=== PATIENT | female | born 1970 ===

== ENCOUNTER 2018-12-23 09:30 | Emergency (ER) | payer OTHER ==
[~2018-12-23] VITALS: Ht 167.6 cm; Wt 77.1 kg
[2018-12-23] MEDS ORDERED: LEVOTHYROXINE (09:41)
--- NOTE | 2018-12-23 09:41 | ED Fall/Injury ---
General Chief Complaint: Trauma-Non Activation Stated Complaint: FALL Source: patient Exam Limitations: language barrier (Bermudian is second language) History of Present Illness Date Seen by Provider: December 23, 2018 Time Seen by Provider: 09:33 Initial Comments The patient presents to ER by EMS from [employer] with chief complaint that she was walking down some stairs and thought she was on the bottom stair but she still had one ago so she fell striking the right back of her head. She does not member everything that happened after that and os consciousness for a few seconds. She does have a history of stroke with some residual right-sided weakness and when she was in her home [place] she said they did some surgery and left things in her head she's not sure what the name of the procedure was. She has a history of hypothyroidism but denies anything else. She is accompanied by some friends who help her with Bermudian translation. She's having some pain in her left hand second metacarpal mild swelling/contusion. No loss of sensation, weakness all 4 extremities Allergies and Home Medications Allergies Coded Allergies: No Known Drug Allergies (Unverified , 12/23/18) Patient Home Medication List Home Medication List Reviewed: Yes Review of Systems Review of Systems Constitutional: No chills, No diaphoresis Eyes: Denies Blindness, Denies Blurred Vision Ears, Nose, Mouth, Throat: denies ear pain, denies ear discharge Respiratory: No cough, No short of breath Cardiovascular: No chest pain, No edema Gastrointestinal: No abdominal pain, No constipation, No nausea Past Augujjx-Jvhlba-Punjdl Hx Patient Social History Alcohol Use: Denies Use Recreational Drug Use: No Smoking Status: Never a Smoker Recent Foreign Travel: No Contact w/Someone Who Travel: No Physical Exam Vital Signs Vital Signs - First Documented 12/23/18 09:41 Temp 97.7 Pulse 64 Resp 18 B/P (MAP) 126/81 (96) Pulse Ox 98 O2 Delivery Room Air Capillary Refill : Height, Weight, BMI Height: '" Weight: lbs. oz. kg; BMI Method: General Appearance: WD/WN, mild distress HEENT: PERRL/EOMI, TMs normal Neck: non-tender, full range of motion Cardiovascular: normal peripheral pulses, regular rate, rhythm Respiratory: chest non-tender, lungs clear, normal breath sounds, no respiratory distress, no accessory muscle use Peripheral Pulses: 2+ Radial Pulses (R), 2+ Radial Pulses (L) Gastrointestinal: normal bowel sounds, non tender, soft Extremities: normal capillary refill, swelling (soft tissue swelling between the first and second digit on the left hand. There is no tenderness over the anatomic snuffbox but there is tenderness in the first and second metacarpal) Neurologic/Psychiatric: alert, normal mood/affect, oriented x 3 Skin: normal color, warm/dry Carlos Coma Score Best Eye Response: (4) Open Spontaneously Best Verbal Response: (5) Oriented Best Motor Response: (6) Obeys Commands Carlos Total: 15 Progress/Results/Core Measures Results/Orders My Orders Orders - HARRIET SHANE Ct Head/Cervical Spine Wo (12/23/18 09:39) Hand, Left, 3 Views (12/23/18 09:39) Vital Signs/I&O 12/23/18 09:41 Temp 97.7 Pulse 64 Resp 18 B/P (MAP) 126/81 (96) Pulse Ox 98 O2 Delivery Room Air Diagnostic Imaging Diagonstic Imaging: CT (without contrast) Plain Films/CT/US/NM/MRI: c-spine, head Comments [facility], [place] NAME: ARACELI TROTTER [facility] REC#: [id number] PT STATUS: REG ER : 1970 PHYSICIAN: HARRIET SHANE MD ADMIT DATE: 12/23/18/ER Draft Date of Exam:12/23/18 CT HEAD/CERVICAL SPINE WO PROCEDURE: CT head and CT cervical spine without contrast. TECHNIQUE: Multiple contiguous axial images were obtained through the brain and cervical spine without the use of intravenous contrast. Sagittal and coronal reformations through the cervical spine were then performed. Auto Exposure Controls were utilized during the CT exam to meet ALARA standards for radiation dose reduction. INDICATION: Fall, hitting back of the head and complaint of head and neck pain. No prior studies are available for comparison. There is a small area of encephalomalacia in the high left posterior parietal lobe likely from prior infarct or trauma. Ventricular size is normal. The sulcal pattern is normal. There is no midline shift. No acute intra-axial or extra-axial hemorrhage is detected. Cisterns are patent. Visualized paranasal sinuses are clear. IMPRESSION: Chronic changes. No acute intracranial process is detected. CT cervical spine: Curvature and alignment is normal. There is degenerative disc disease C5-6 level with disc space and marginal spurring. No fractures are seen. The odontoid is intact. Prevertebral tissues are within normal limits. IMPRESSION: Cervical spondylosis. No acute bony abnormality is detected. Dictated on workstation # [id number] Dict: 12/23/18 1044 Trans: 12/23/18 1051 [facility] [id number] Interpreted by: MARLIN AVILA MD Electronically signed by: Reviewed: Reviewed by Me Diagonstic Imaging: Xray Plain Films/CT/US/NM/MRI: hand Comments [facility] [place] NAME: ARACELI TROTTER [facility] REC#: [id number] PT STATUS: REG ER : 1970 PHYSICIAN: HARRIET SHANE MD ADMIT DATE: 12/23/18/ER Draft Date of Exam:12/23/18 HAND, LEFT, 3 VIEWS INDICATION: Fall with injury to left hand and knot between the first and second digits. TIME OF EXAMINATION: 9:48 AM. TECHNIQUE: Three views of the left hand were obtained. FINDINGS: The metacarpals appear to be intact. The phalanges are intact. No fractures are seen. The carpus is unremarkable. IMPRESSION: No acute bony abnormality is detected. Dictated on workstation # [id number] Dict: 12/23/18 0954 Trans: 12/23/18 0958 [id number] Interpreted by: MARLIN AVILA MD Electronically signed by: Reviewed: Reviewed by Me Departure Impression Primary Impression: Fall (on) (from) other stairs and steps, initial encounter Additional Impressions: Headache Qualified Codes: R51 - Headache Contusion Qualified Codes: S00.03XA - Contusion of scalp, initial encounter Traumatic hematoma of hand Qualified Codes: S60.222A - Contusion of left hand, initial encounter Mild concussion Qualified Codes: S06.0X1A - Concussion with loss of consciousness of 30 minutes or less, initial encounter Disposition: 01 HOME, SELF-CARE Condition: Stable Departure-Patient Inst. Decision time for Depature: 11:10 Patient Instructions: Concussion, Adult (DC) Add. Discharge Instructions: Apply an ice pack to your head and hand as necessary for the next couple days for swelling and pain. Use Tylenol 1000 mg every 8 hours in addition to ibuprofen 800 mg every 8 hours. Follow-up with occupational health as indicated. If you have any symptoms of concussion such as severe headache, nausea, gait instability, blurry vision then you should go home and get some sleep and return to work the next day. All discharge instructions reviewed with patient and/or family. Voiced understanding. HARRIET SHANE December 23, 2018 09:41
--- NOTE | 2018-12-23 09:50 | NUR ---
SAFETY MGR MAHSA VASQUEZ FROM [facility] ALONG WITH SALES OFFICER SUNG MEJÍA IN AT THS TIME.
--- NOTE | 2018-12-23 09:58 | Diagnostic Imaging Report ---
INDICATION: Fall with injury to left hand and knot between the first and second digits. TIME OF EXAMINATION: 9:48 AM. TECHNIQUE: Three views of the left hand were obtained. FINDINGS: The metacarpals appear to be intact. The phalanges are intact. No fractures are seen. The carpus is unremarkable. IMPRESSION: No acute bony abnormality is detected. Dictated by: Dictated on workstation # [id number]
--- NOTE | 2018-12-23 10:51 | Diagnostic Imaging Report ---
PROCEDURE: CT head and CT cervical spine without contrast. TECHNIQUE: Multiple contiguous axial images were obtained through the brain and cervical spine without the use of intravenous contrast. Sagittal and coronal reformations through the cervical spine were then performed. Auto Exposure Controls were utilized during the CT exam to meet ALARA standards for radiation dose reduction. INDICATION: Fall, hitting back of the head and complaint of head and neck pain. No prior studies are available for comparison. There is a small area of encephalomalacia in the high left posterior parietal lobe likely from prior infarct or trauma. Ventricular size is normal. The sulcal pattern is normal. There is no midline shift. No acute intra-axial or extra-axial hemorrhage is detected. Cisterns are patent. Visualized paranasal sinuses are clear. IMPRESSION: Chronic changes. No acute intracranial process is detected. CT cervical spine: Curvature and alignment is normal. There is degenerative disc disease C5-6 level with disc space and marginal spurring. No fractures are seen. The odontoid is intact. Prevertebral tissues are within normal limits. IMPRESSION: Cervical spondylosis. No acute bony abnormality is detected. Dictated by: Dictated on workstation # [id number]
--- NOTE | 2018-12-23 11:07 | NUR ---
UA OBTAINED BY [facility] AT THIS TIME.
--- OUTSIDE RECORDS SUMMARY | 2018-12-23 11:15 | XMS REPORT ---
Author Author NOVA HERNANDEZ Organization [facility] Address [address] [place] [address] Care Team Providers Care Machine Fur Cleaner Name Role Phone NOVA HERNANDEZ Unavailable PROBLEMS Type Condition ICD9-CM Code FRG61-MR Code Onset Dates Condition Status SNOMED Code Problem Hypothyroidism (acquired) E03.9 Active 98931265 Problem GERD without esophagitis K21.9 Active 002187199 Problem Other headache syndrome G44.89 Active 045531643 ALLERGIES No Known Allergies ENCOUNTERS Encounter Location Date Diagnosis [place] [address] [address] Mar, [place] [address] [address] Feb, [facility] [address] [address] December, Acute recurrent frontal sinusitis J01.11 [place] [address] [address] 14 Dec, 2017 Coughing R05 ; Screening, lipid Z13.220 and Acute cystitis with hematuria N30.01 [place] [address] [address] December, Acute cystitis without hematuria N30.00 and Viral upper respiratory tract infection J06.9 [place] [address] [address] December, Sore throat J02.9 [place] [address] [address] Oct, [facility] [address] [address] Aug, Acute cystitis with hematuria N30.01 [facility] [address] [place] [id number] [place] [address] Jun, [facility] [address] [place] [id number] [place] [address] Jun, [facility] [address] [place] [id number] [place] [address] Apr, [facility] [address] [address] Apr, [place] [address] [address] Mar, Weakness R53.1 ; Other fatigue R53.83 and Hypothyroidism ( acquired) E03.9 [place] [address] [address] Feb, [place] [address] [address] Feb, GERD without esophagitis K21.9 and Hypothyroidism (acquired ) E03.9 [place] [address] [place] [id number] [place] [address] Jan, [place] [address] [place] [id number] [place] [address] Jan, Acute upper respiratory infection, unspecified J06.9 [place] [address] [place] [id number] [place] [address] Jan, [place] [address] [place] [id number] [place] [address] Jan, Bronchitis J40 and Coughing R05 [place] [address] [place] [id number] [place] [address] Jan, [facility] [address] [place] [id number] [place] [address]- [address] Jan, Wheezing R06.2 ; Bronchitis J40 and Cough R05 [facility] [address] [place] [id number] [place] [address]- [address] Jan, [facility] [address] [address] December, Acute nasopharyngitis J00 and Dysuria R30.0 [facility] [address] [address] Nov, [facility] [address] [address] Nov, [facility] [address] [address] Nov, Other headache syndrome G44.89 ; Edema, unspecified type R60.9 ; Acquired hypothyroidism E03.9 and Screening, lipid Z13.220 [place] [address] [address] Nov, [facility] [address] [place] [id number] [place] [address] Oct, Hypothyroidism (acquired) E03.9 [facility] [address] [place] [id number] [place] [address] Oct, [facility] [address] [place] [id number] [place] [address] 24[address]- [address] Sep, [facility] [address] [place] [id number] [place] [address] 26[address]- [address] Sep, [facility] [address] [place] [id number] [place] [address] 80[address]- [address] Sep, [facility] [address] [address] Sep, Weight loss R63.4 ; Change in bowel habits R19.4 and Hypothyroidism (acquired) E03.9 [facility] [address] [place] [id number] [place] [address] Aug, [facility] [address] [address] Jul, Hypothyroidism (acquired) E03.9 [place] [address] [address] Jul, [facility] [address] [address] May, Hypothyroidism (acquired) E03.9 [facility] [id number] [place] [address] Apr, Hypothyroidism (acquired) E03.9 [place] [address] [place] [id number] [place] [address] Mar, Hypothyroidism (acquired) E03.9 and Arthralgia, unspecified joint M25.50 [place] [id number] [place] [address] Feb, Hypothyroidism (acquired) E03.9 [place] [address] [address] Feb, Dysuria R30.0 ; Encounter to establish care Z76.89 ; Arthralgia, unspecified joint M25.50 ; Fatigue, unspecified type R53.83 ; Low back pain M54.5 ; Other chronic pain G89.29 ; Family history of diabetes mellitus Z83.3 and History of stroke Z86.73 IMMUNIZATIONS No Known Immunizations SOCIAL HISTORY Never Assessed REASON FOR VISIT Headache, PT reports that about 3 weeks ago she has been having body aches/ headaches and coughing up some mucous. PT notes the sinus pressure began this week. -Kwabena ZULETA PLAN OF CARE Activity Details Follow Up prn Reason: VITAL SIGNS Height 65 in 2018-01-14 Weight 168.8 lbs 2018-01-14 Temperature 98.6 degrees Fahrenheit 2018-01-14 Heart Rate 74 bpm 2018-01-14 Respiratory Rate 18 2018-01-14 BMI 28.09 kg/m2 2018-01-14 Blood pressure systolic 122 mmHg 2018-01-14 Blood pressure diastolic 68 mmHg 2018-01-14 MEDICATIONS Medication Instructions Dosage Frequency Start Date End Date Duration Status Tessalon Perles 100 mg Orally Three times a day 1 capsule as needed 8h December, Jan, 07 days Active Loratadine 10 mg Orally Once a day as needed for cough 1 tablet December, Mar, 30 day(s) Active Levothyroxine Sodium 50 mcg Orally Once a day 1 tablet on an empty stomach in the morning 24h 30 days Active Zithromax Z-Tylor 250 MG Orally Once a day 2 tablets on the first day, then 1 tablet daily for 4 days 24h December, Jan, 5 day(s) Active RESULTS No Results PROCEDURES No Known procedures INSTRUCTIONS MEDICATIONS ADMINISTERED No Known Medications MEDICAL (GENERAL) HISTORY Type Description Date Medical History Cerebrovascular accident (CVA), unspecified mechanism Surgical History left breast lumpectomy 1999 Surgical History Had a shunt from her head to her abd when she had the stroke. It has been removed 2007 Hospitalization History lumpectomy 1999 Hospitalization History CVA 2007
--- OUTSIDE RECORDS SUMMARY | 2018-12-23 11:15 | XMS REPORT ---
Author Author STANISLAV AGUAYO [facility] Address [address] [place] [address] Care Team Providers Care Mat Repairer Name Role Phone STANISLAV AGUAYO Unavailable PROBLEMS Type Condition ICD9-CM Code KPO58-MQ Code Onset Dates Condition Status SNOMED Code Problem Hypothyroidism (acquired) E03.9 Active 54853793 Problem GERD without esophagitis K21.9 Active 793951813 Problem Other headache syndrome G44.89 Active 430651547 ALLERGIES No Information ENCOUNTERS Encounter Location Date Diagnosis [place] [address] [address] May, [place] [address] [address] Apr, [place] [address] [address] Mar, [place] [address] [address] Feb, [place] [address] [address] December, Acute recurrent frontal sinusitis J01.11 [place] [address] [address] 14 Dec, 2017 Coughing R05 ; Screening, lipid Z13.220 and Acute cystitis with hematuria N30.01 [place] [address] [address] December, Acute cystitis without hematuria N30.00 and Viral upper respiratory tract infection J06.9 [place] [address] [address] December, Sore throat J02.9 [facility] [address] [address] Oct, [facility] [address] [place] [id number] [place] [address] Aug, Acute cystitis with hematuria N30.01 [facility] [address] [place] [id number] [place] [address] Jun, [facility] [address] [place] [id number] [place] [address]- [address] Jun, [facility] [address] [place] [id number] [place] [address] 21331- [address] Apr, [facility] [address] [place] [id number] [place] [address] 8[address]- [address] Apr, [facility] [address] [place] [id number] [place] [address] Mar, Weakness R53.1 ; Other fatigue R53.83 and Hypothyroidism ( acquired) E03.9 [facility] [address] [place] [id number] [place] [address] Feb, [facility] [address] [place] [id number] [place] [address]- [address] Feb, GERD without esophagitis K21.9 and Hypothyroidism (acquired ) E03.9 [facility] [address] [place] [id number] [place] [address]- [address] Jan, [facility] [address] [place] [id number] [place] [address] 20232- [address] Jan, Acute upper respiratory infection, unspecified J06.9 [facility] [address] [place] [id number] [place] [address]- [address] Jan, [facility] [address] [place] [id number] [place] [address] 8[address]- [address] 14 Jan, 2017 Bronchitis J40 and Coughing R05 [facility] [address] [address] Jan, [facility] [address] [address] Jan, [facility] [address] [address] Jan, Wheezing R06.2 ; Bronchitis J40 and Cough R05 [facility] [address] [address] December, Acute nasopharyngitis J00 and Dysuria R30.0 [facility] [address] [address] Nov, [facility] [address] [address] Nov, [facility] [address] [address] Nov, [facility] [address] [address] Nov, Other headache syndrome G44.89 ; Edema, unspecified type R60.9 ; Acquired hypothyroidism E03.9 and Screening, lipid Z13.220 [facility] [address] [address] Oct, Hypothyroidism (acquired) E03.9 [facility] [address] [address] Oct, [facility] [address] [address] Sep, [facility] [address] [address] Sep, [facility] [address] [address] Sep, [facility] [address] [address] Sep, Weight loss R63.4 ; Change in bowel habits R19.4 and Hypothyroidism (acquired) E03.9 [place] [address] [place] [id number] [place] [address] Aug, [place] [address] [place] [id number] [place] [address]- [address] Jul, Hypothyroidism (acquired) E03.9 [place] [address] [address] Jul, [place] [address] [place] [id number] [place] [address] May, Hypothyroidism (acquired) E03.9 [place] [address] [place] [id number] [place] [address]- [address] Apr, Hypothyroidism (acquired) E03.9 [place] [address] [address] Mar, Hypothyroidism (acquired) E03.9 and Arthralgia, unspecified joint M25.50 [place] [address] [place] [id number] [place] [address]- [address] Feb, Hypothyroidism (acquired) E03.9 [place] [address] [place] [id number] [place] [address] 8[address] Feb, Dysuria R30.0 ; Encounter to establish care Z76.89 ; Arthralgia, unspecified joint M25.50 ; Fatigue, unspecified type R53.83 ; Low back pain M54.5 ; Other chronic pain G89.29 ; Family history of diabetes mellitus Z83.3 and History of stroke Z86.73 IMMUNIZATIONS No Known Immunizations SOCIAL HISTORY Never Assessed REASON FOR VISIT Medication refill request PLAN OF CARE VITAL SIGNS MEDICATIONS Medication Instructions Dosage Frequency Start Date End Date Duration Status Levothyroxine Sodium 50 mcg Orally Once a day 1 tablet on an empty stomach in the morning 24h 14 days Active RESULTS No Results PROCEDURES No Known [...]
--- OUTSIDE RECORDS SUMMARY | 2018-12-23 11:15 | XMS REPORT ---
Author Author NATI LONG Organization [facility] Address [address] [place] [address] Care Team Providers Care Simulation Software Engineer Name Role Phone NATI LONG Unavailable PROBLEMS Type Condition ICD9-CM Code IWP10-NO Code Onset Dates Condition Status SNOMED Code Problem Hypothyroidism (acquired) E03.9 Active 80839592 Problem GERD without esophagitis K21.9 Active 669810327 Problem Other headache syndrome G44.89 Active 948150984 ALLERGIES No Information ENCOUNTERS Encounter Location Date Diagnosis [place] [address] 39953- 8565 Mar, [place] [address] 00045- 6800 Feb, [place] [address] 94081- 4625 December, Acute recurrent frontal sinusitis J01.11 [place] [address] 81487- 1027 December, Coughing R05 ; Screening, lipid Z13.220 and Acute cystitis with hematuria N30.01 [place] [address] 87585- 1862 December, Acute cystitis without hematuria N30.00 and Viral upper respiratory tract infection J06.9 [place] [address] 33396- 7434 December, Sore throat J02.9 [place] [address] 93822- 3588 Oct, [facility] [address] 74886 -1011 Aug, Acute cystitis with hematuria N30.01 [facility] [address] [place] [id number] [place] [address] 79007- 6325 Jun, [facility] [address] [place] [id number] [place] [address] 31239- 5526 Jun, [facility] [address] [place] [id number] [place] [address] 78505- 4016 Apr, [facility] [address] 39784- 8485 Apr, [facility] [address] [place] [id number] [place] [address] 45548- 7267 Mar, Weakness R53.1 ; Other fatigue R53.83 and Hypothyroidism ( acquired) E03.9 [facility] [address] [place] [id number] [place] [address] 12298- 5969 Feb, [facility] [address] [place] [id number] [place] [address] 74322- 3784 Feb, GERD without esophagitis K21.9 and Hypothyroidism (acquired ) E03.9 [facility] [address] [place] [id number] [place] [address] 57673- 9871 Jan, [facility] [address] [place] [id number] [place] [address] 41355- 5633 Jan, Acute upper respiratory infection, unspecified J06.9 [facility] [address] [place] [id number] [place] [address] 31840- 6641 Jan, [facility] [address] [place] [id number] [place] [address] 15799- 2076 Jan, Bronchitis J40 and Coughing R05 [facility] [address] [place] [id number] [place] [address] 39301- 5199 Jan, [facility] [address] [place] [id number] [place] [address] 70488- 8227 Jan, [facility] [address] [place] [id number] [place] [address] 12198- 3380 Jan, Wheezing R06.2 ; Bronchitis J40 and Cough R05 [place] [address] 89700- 3511 December, Acute nasopharyngitis J00 and Dysuria R30.0 [facility] [address] 86859- 3548 Nov, [facility] [address] 17661- 6214 Nov, [facility] [address] 08635- 4966 Nov, [place] [address] 90284- 9243 Nov, Other headache syndrome G44.89 ; Edema, unspecified type R60.9 ; Acquired hypothyroidism E03.9 and Screening, lipid Z13.220 [place] [address] 36397- 4187 Oct, Hypothyroidism (acquired) E03.9 [place] [address] 99154- 7562 Oct, [facility] [address] [place] [id number] [place] [address] 13955- 8386 Sep, [place] [address] [place] [id number] [place] [address] 37204- 9114 Sep, [facility] [address] [place] [id number] [place] [address] 91255- 7556 Sep, [facility] [address] 40302- 1441 Sep, Weight loss R63.4 ; Change in bowel habits R19.4 and Hypothyroidism (acquired) E03.9 [facility] [address] [place] [id number] [place] [address] 74238- 3089 Aug, [place] [address] [place] [id number] [address] 3036 14 Jul, 2016 Hypothyroidism (acquired) E03.9 [place] [address] [place] [address]- 6426 Jul, [place] [address], [place] [address]- 0883 May, Hypothyroidism (acquired) E03.9 [place] [address] [place] [address] 35708- 9956 Apr, Hypothyroidism (acquired) E03.9 [place] [address] [place] [address] 71515- 0706 Mar, Hypothyroidism (acquired) E03.9 and Arthralgia, unspecified joint M25.50 [place] [address], [place] [address]- 4647 Feb, Hypothyroidism (acquired) E03.9 [place] [address], [place] [address]- 6541 Feb, Dysuria R30.0 ; Encounter to establish care Z76.89 ; Arthralgia, unspecified joint M25.50 ; Fatigue, unspecified type R53.83 ; Low back pain M54.5 ; Other chronic pain G89.29 ; Family history of diabetes mellitus Z83.3 and History of stroke Z86.73 IMMUNIZATIONS No Known Immunizations SOCIAL HISTORY Never Assessed REASON FOR VISIT medication request PLAN OF CARE VITAL SIGNS MEDICATIONS Medication Instructions Dosage Frequency Start Date End Date Duration Status Levothyroxine Sodium 50 mcg Orally Once a day 1 tablet on an empty stomach in the morning 24h 30 days Active RESULTS No Results PROCEDURES No [...]
--- OUTSIDE RECORDS SUMMARY | 2018-12-23 11:15 | XMS REPORT ---
Author Author NATI LONG Organization [facility] Address [address] [place] [address] Care Team Providers Care Napper Tender Name Role Phone NATI LONG Unavailable PROBLEMS Type Condition ICD9-CM Code UCE61-PK Code Onset Dates Condition Status SNOMED Code Problem Other chronic pain G89.29 Active 89767750 Problem Hypothyroidism (acquired) E03.9 Active 50097026 Problem GERD without esophagitis K21.9 Active 428179176 Problem Other headache syndrome G44.89 Active 487220717 ALLERGIES No Information ENCOUNTERS Encounter Location Date Diagnosis [place] [address] [place] [id number] [place] [address] 94785- 6824 Aug, [place] [address] [place] [id number] [place] [address] 45299- 8435 Jul, [place] [address] [place] [id number] [place] [address] 11953- 0615 May, Hypothyroidism (acquired) E03.9 ; Other chronic pain G89.29 and Pain in right knee M25.561 [place] [address] [place] [id number] [place] [address] 54878- 9996 Apr, [place] [address] [place] [id number] [place] [address] 77244- 9207 Mar, [place] [address] [place] [id number] [place] [address] 76897- 4267 Feb, [place] [address] 67385- 2754 December, Acute recurrent frontal sinusitis J01.11 [place] [address] [place] [id number] [place] [address] 34638- 9466 December, Coughing R05 ; Screening, lipid Z13.220 and Acute cystitis with hematuria N30.01 [facility] [address] [place] [id number] [address]- 7536 December, Acute cystitis without hematuria N30.00 and Viral upper respiratory tract infection J06.9 [facility] [address] [place] [id number] [place] [address] 37044- 2134 December, Sore throat J02.9 [facility] [address] [place] [id number] [place] [address] 33292- 6444 Oct, [facility] [address] [place] [id number] [place] [address] 12664 -3803 Aug, Acute cystitis with hematuria N30.01 [facility] [address] [place] [id number] [place] [address] 60514- 5283 Jun, [facility] [address] [place] [id number] [place] [address] 10152- 1738 Jun, [facility] [address] [place] [id number] [place] [address] 74481- 2976 Apr, [facility] [address] [place] [id number] [place] [address] 59828- 3178 Apr, [facility] [address] [place] [id number] [place] [address] 98998- 1948 Mar, Weakness R53.1 ; Other fatigue R53.83 and Hypothyroidism ( acquired) E03.9 [facility] [address] [place] [id number] [place] [address] 48576- 8063 Feb, [facility] [address] [place] [id number] [place] [address] 79214- 7238 Feb, GERD without esophagitis K21.9 and Hypothyroidism (acquired ) E03.9 [facility] [address] [place] [id number] [place] [address] 60607- 7209 Jan, [facility] [address] [place] [id number] [place] [address] 35685- 7561 Jan, Acute upper respiratory infection, unspecified J06.9 [facility] [address] [place] [id number] [place] [address] 56981- 9130 Jan, [facility] [address] [place] [id number] [place] [address] 72773- 4333 Jan, Bronchitis J40 and Coughing R05 [facility] [address] 40977- 4235 Jan, [facility] [address] 79247- 4506 Jan, [place] [address] 06040- 0602 Jan, Wheezing R06.2 ; Bronchitis J40 and Cough R05 [place] [address] 23544- 0817 December, Acute nasopharyngitis J00 and Dysuria R30.0 [facility] [address] [place] [id number] [place] [address] 60749- 6714 Nov, [facility] [address] 78851- 0445 Nov, [facility] [address] [place] [id number] [place] [address] 24403- 0036 Nov, [facility] [address] [place] [id number] [place] [address] 76740- 2721 Nov, Other headache syndrome G44.89 ; Edema, unspecified type R60.9 ; Acquired hypothyroidism E03.9 and Screening, lipid Z13.220 [place] [address] 05981- 0714 Oct, Hypothyroidism (acquired) E03.9 [facility] [address] [place] [id number] [place] [address] 09803- 3214 Oct, [facility] [address] 62025- 6496 Sep, [facility] [address], [place] [address]- 0824 Sep, [facility] [address] [place] [id number] [place] [address] 52382- 5667 Sep, [facility] [address] [place] [id number] [place] [address] 71974- 4471 Sep, Weight loss R63.4 ; Change in bowel habits R19.4 and Hypothyroidism (acquired) E03.9 [place] [address] [place] [id number] [place] [address] 13107- 5029 Aug, [place] [address] [place] [id number] [place] [address] 85855- 1582 Jul, Hypothyroidism (acquired) E03.9 [place] [address] [place] [id number] [place] [address] 30834- 2794 Jul, [place] [address] [place] [id number] [place] [address] 75604- 2365 May, Hypothyroidism (acquired) E03.9 [place] [address] [place] [id number] [place] [address] 04557- 8659 Apr, Hypothyroidism (acquired) E03.9 [place] [address] [place] [id number] [place] [address] 41120- 0706 Mar, Hypothyroidism (acquired) E03.9 and Arthralgia, unspecified joint M25.50 [place] [address], [place] [address]- 0031 Feb, Hypothyroidism (acquired) E03.9 [place] [address] [place] [id number] [place] [address] 96802- 7589 Feb, Dysuria R30.0 ; Encounter to establish care Z76.89 ; Arthralgia, unspecified joint M25.50 ; Fatigue, unspecified type R53.83 ; Low back pain M54.5 ; Other chronic pain G89.29 ; Family history of diabetes mellitus Z83.3 and History of stroke Z86.73 IMMUNIZATIONS No Known Immunizations SOCIAL HISTORY Never Assessed REASON FOR VISIT Medication refill request PLAN OF CARE VITAL SIGNS MEDICATIONS Unknown Medications RESULTS No Results PROCEDURES No Known procedures [...]
--- OUTSIDE RECORDS SUMMARY | 2018-12-23 11:15 | XMS REPORT ---
Author Author STANISLAV AGUAYO [facility] Address [address] [place] [address] Care Team Providers Care Electronic Technician Name Role Phone STANISLAV AGUAYO Unavailable PROBLEMS Type Condition ICD9-CM Code HSN85-RF Code Onset Dates Condition Status SNOMED Code Problem Hypothyroidism (acquired) E03.9 Active 44687922 Problem GERD without esophagitis K21.9 Active 204069397 Problem Other headache syndrome G44.89 Active 491154070 ALLERGIES No Information ENCOUNTERS Encounter Location Date Diagnosis [place] [address] 29706- 6729 Mar, [place] [address] 05512- 4122 Feb, [facility] [address] 09241- 8504 December, Acute recurrent frontal sinusitis J01.11 [place] [address] 92753- 5173 December, Coughing R05 ; Screening, lipid Z13.220 and Acute cystitis with hematuria N30.01 [place] [address] 27502- 0764 December, Acute cystitis without hematuria N30.00 and Viral upper respiratory tract infection J06.9 [place] [address] 00285- 5629 December, Sore throat J02.9 [place] [address] 30609- 8114 Oct, [facility] [address] 04728 -8578 Aug, Acute cystitis with hematuria N30.01 [facility] [address] [place] [id number] [address]- 9050 Jun, [facility] [address] [place] [id number] [place] [address] 12486- 1807 Jun, [facility] [address] [place] [id number] [place] [address] 77556- 6396 Apr, [facility] [address] [place] [id number] [place] [address] 16975- 3159 Apr, [facility] [address] [place] [id number] [place] [address] 52571- 8468 Mar, Weakness R53.1 ; Other fatigue R53.83 and Hypothyroidism ( acquired) E03.9 [facility] [address] [place] [id number] [place] [address] 40018- 6869 Feb, [facility] [address] [place] [id number] [place] [address] 05224- 0121 Feb, GERD without esophagitis K21.9 and Hypothyroidism (acquired ) E03.9 [facility] [address] [place] [id number] [place] [address] 38052- 3842 Jan, [facility] [address] [place] [id number] [place] [address] 97830- 8906 Jan, Acute upper respiratory infection, unspecified J06.9 [facility] [address] [place] [id number] [place] [address] 58715- 9219 Jan, [facility] [address] [place] [id number] [place] [address] 41898- 7207 Jan, Bronchitis J40 and Coughing R05 [facility] [address] [place] [id number] [place] [address] 56073- 8497 Jan, [facility] [address] [place] [id number] [place] [address] 20450- 5064 Jan, [facility] [address] 88133- 5674 Jan, Wheezing R06.2 ; Bronchitis J40 and Cough R05 [place] [address] 79429- 5200 December, Acute nasopharyngitis J00 and Dysuria R30.0 [facility] [address] 06073- 4329 Nov, [facility] [address] 21638- 8269 Nov, [facility] [address] 12057- 3270 Nov, [place] [address] 62128- 2771 Nov, Other headache syndrome G44.89 ; Edema, unspecified type R60.9 ; Acquired hypothyroidism E03.9 and Screening, lipid Z13.220 [place] [address] 23878- 9604 Oct, Hypothyroidism (acquired) E03.9 [place] [address] 50282- 0171 Oct, [facility] [address] [place] [id number] [place] [address] 82704- 2840 Sep, [place] [address] [place] [id number] [place] [address] 74422- 1309 Sep, [facility] [address] [place] [id number] [place] [address] 77764- 0340 Sep, [facility] [address] 09672- 0337 Sep, Weight loss R63.4 ; Change in bowel habits R19.4 and Hypothyroidism (acquired) E03.9 [place] [address] 74270- 8616 Aug, [place] [address]- 1738 Jul, Hypothyroidism (acquired) E03.9 [place] [address], [place] [address]- 7984 Jul, [place] [address]- 0457 May, Hypothyroidism (acquired) E03.9 [place] [address] [place] [id number] [place] [address] 92997- 5542 Apr, Hypothyroidism (acquired) E03.9 [place] [address] [place] [id number] [place] [address] 547262- 5546 Mar, Hypothyroidism (acquired) E03.9 and Arthralgia, unspecified joint M25.50 [place] [id number] [place] [address] 495257- 0279 Feb, Hypothyroidism (acquired) E03.9 [place] [address], [place] [address]- 1030 Feb, Dysuria R30.0 ; Encounter to establish [...]
--- OUTSIDE RECORDS SUMMARY | 2018-12-23 11:15 | XMS REPORT ---
Author Author NOVA HERNANDEZ Organization [facility] Address [address] [place] [address] Care Team Providers Care Cooking Casing And Drying Supervisor Name Role Phone NOVA HERNANDEZ Unavailable PROBLEMS Type Condition ICD9-CM Code RSR42-UC Code Onset Dates Condition Status SNOMED Code Problem Hypothyroidism (acquired) E03.9 Active 38302157 Problem GERD without esophagitis K21.9 Active 746985537 Problem Other headache syndrome G44.89 Active 923779019 ALLERGIES No Known Allergies ENCOUNTERS Encounter Location Date Diagnosis [place] [address] 01441- 6463 Mar, [place] [address] 33490- 0202 Mar, [place] [address] 38501- 4982 Feb, [place] [address] 97931- 1634 December, Acute recurrent frontal sinusitis J01.11 [place] [address] 50868- 7785 14 Dec, 2017 Coughing R05 ; Screening, lipid Z13.220 and Acute cystitis with hematuria N30.01 [place] [address] 94902- 1254 11 Dec, 2017 Acute cystitis without hematuria N30.00 and Viral upper respiratory tract infection J06.9 [place] [address] 86609- 3110 09 Dec, 2017 Sore throat J02.9 [place] [address] 22963- 5878 Oct, [facility] [address], [place] [address] -2509 Aug, Acute cystitis with hematuria N30.01 [facility] [address], [place] [address]- 9018 Jun, [facility] [address] [place] [address] [id number] [place] [address] 88322- 0979 Jun, [facility] [address] [place] [id number] [place] [address] 05304- 5587 Apr, [facility] [address] [place] [id number] [place] [address] 36036- 2544 Apr, [facility] [id number] [place] [address] 28944- 2356 Mar, Weakness R53.1 ; Other fatigue R53.83 and Hypothyroidism ( acquired) E03.9 [facility] [address] [place] [id number] [place] [address] 16287- 3921 Feb, [facility] [address] [place] [id number] [place] [address] 68169- 7109 Feb, GERD without esophagitis K21.9 and Hypothyroidism (acquired ) E03.9 [facility] [address] [place] [id number] [address]- 2680 Jan, [facility] [address] [place] [id number] [place] [address] 44285- 1751 Jan, Acute upper respiratory infection, unspecified J06.9 [facility] [address], [place] [address]- 1323 Jan, [facility] [address] [place] [address] [id number] [place] [address] 75766- 0424 Jan, Bronchitis J40 and Coughing R05 [facility] [address] [id number] [address]- 9749 Jan, [facility] [address] [place] [id number] [place] [address] 60708- 7672 Jan, [facility] [address] 51209- 4467 Jan, Wheezing R06.2 ; Bronchitis J40 and Cough R05 [facility] [address] 43999- 1392 December, Acute nasopharyngitis J00 and Dysuria R30.0 [facility] [address] 10293- 9048 Nov, [place] [address] 20965- 7487 Nov, [facility] [address] 51982- 0828 Nov, [place] [address] 99038- 8420 Nov, Other headache syndrome G44.89 ; Edema, unspecified type R60.9 ; Acquired hypothyroidism E03.9 and Screening, lipid Z13.220 [place] [address] 47251- 3016 Oct, Hypothyroidism (acquired) E03.9 [place] [address] [place] [id number] [place] [address] 22433- 5409 Oct, [facility] [address] [place] [id number] [place] [address] 03472- 7378 Sep, [facility] [address] [place] [id number] [place] [address] 45550- 2722 Sep, [facility] [address] 72729- 6595 Sep, [facility] [address] [place] [id number] [place] [address] 62585- 1883 Sep, Weight loss R63.4 ; Change in bowel habits R19.4 and Hypothyroidism (acquired) E03.9 [facility] [address], [place] [address]- 3038 Aug, [place] [address] [place] [id number] [place] [address] 42492- 3545 Jul, Hypothyroidism (acquired) E03.9 [facility] [id number] [place] [address] [id number][id number] Jul, [place] [id number] [place] [address] 47[address]85 May, Hypothyroidism (acquired) E03.9 [place] [id number] [place] [address]- [address]147 Apr, Hypothyroidism (acquired) E03.9 [place] [id number] [place] [address] 98[address]- 2828 Mar, Hypothyroidism (acquired) E03.9 and Arthralgia, unspecified joint M25.50 [place] [id number] [place] [address] 43[address]- [address] Feb, Hypothyroidism (acquired) E03.9 [place] [id number] [place] [address] 21151- [address]762 Feb, Dysuria R30.0 ; Encounter to establish care Z76.89 ; Arthralgia, unspecified joint M25.50 ; Fatigue, unspecified type R53.83 ; Low back pain M54.5 ; Other chronic pain G89.29 ; Family history of diabetes mellitus Z83.3 and History of stroke Z86.73 IMMUNIZATIONS No Known Immunizations SOCIAL HISTORY Never Assessed REASON FOR VISIT sore throat with swelling that started fridayKyle ZULETA PLAN OF CARE Activity Details Follow Up prn Reason: VITAL SIGNS Height 65 in 2017-12-24 Weight 171.0 lbs 2017-12-24 Temperature 98.4 degrees Fahrenheit 2017-12-24 Heart Rate 66 bpm 2017-12-24 Respiratory Rate 18 2017-12-24 BMI 28.45 kg/m2 2017-12-24 Blood pressure systolic 110 mmHg 2017-12-24 Blood pressure diastolic 76 mmHg 2017-12-24 MEDICATIONS Medication Instructions Dosage Frequency Start Date End Date Duration Status Levothyroxine Sodium 50 mcg Orally Once a day 1 tablet on an empty stomach in the morning 24h 30 days Active Guaifenesin 400 mg Orally 2 times a day 1 tablet 12h December, December, 05 days Active RESULTS No Results PROCEDURES No [...]
--- OUTSIDE RECORDS SUMMARY | 2018-12-23 11:16 | XMS REPORT ---
Author Author NOVA HERNANDEZ Organization [facility] Address [address] [place] [address] Care Team Providers Care Loft Worker Pile Driving Name Role Phone NOVA HERNANDEZ Unavailable PROBLEMS Type Condition ICD9-CM Code DGA18-FG Code Onset Dates Condition Status SNOMED Code Problem Hypothyroidism (acquired) E03.9 Active 34764974 Problem GERD without esophagitis K21.9 Active 323181452 Problem Other headache syndrome G44.89 Active 095372180 ALLERGIES No Known Allergies ENCOUNTERS Encounter Location Date Diagnosis [place] [address] [address] Mar, [place] [address] [address] Mar, [place] [address] [address] Feb, [place] [address] [address]- [address]24 December, Acute recurrent frontal sinusitis J01.11 [place] [address] [address]- [address]76 14 Dec, 2017 Coughing R05 ; Screening, lipid Z13.220 and Acute cystitis with hematuria N30.01 [place] [address] [address]- [address] 11 Dec, 2017 Acute cystitis without hematuria N30.00 and Viral upper respiratory tract infection J06.9 [place] [address] 14255- [address] 09 Dec, 2017 Sore throat J02.9 [place] [address] [address]35- [address]65 Oct, [facility] [address] [address] Aug, Acute cystitis with hematuria N30.01 [facility] [address] [address] Jun, [facility] [address] [place] [id number] [place] [address] 42425- 9543 Jun, [facility] [address] [address] [id number] [place] [address] 69234- 7982 Apr, [facility] [address] [id number] [place] [address] 08901- 7915 Apr, [facility] [address] [id number] [place] [address] 10472- 3257 Mar, Weakness R53.1 ; Other fatigue R53.83 and Hypothyroidism ( acquired) E03.9 [facility] [address] [place] [id number] [place] [address] 77843- 2173 Feb, [facility] [address] [id number] [place] [address] 44523- 1873 Feb, GERD without esophagitis K21.9 and Hypothyroidism (acquired ) E03.9 [facility] [address] [place] [address] [id number] [address] Jan, [facility] [address] [place] [id number] [place] [address] 43615- 4647 Jan, Acute upper respiratory infection, unspecified J06.9 [facility] [address] [address] Jan, [facility] [address] [id number] [place] [address] 48380- 8405 Jan, Bronchitis J40 and Coughing R05 [facility] [address] [id number] [address] 4[address] Jan, [facility] [address] [address] [id number] [place] [address] 78764- 7226 Jan, [facility] [address] [address]- 377[address] Jan, Wheezing R06.2 ; Bronchitis J40 and Cough R05 [facility] [address] [address]- 4[address] December, Acute nasopharyngitis J00 and Dysuria R30.0 [facility] [address] 33678- 1541 Nov, [place] [address] 53761- 3[address] Nov, [facility] [address] 6[address]17- 0480 Nov, [place] [address] 04714- 68[address] Nov, Other headache syndrome G44.89 ; Edema, unspecified type R60.9 ; Acquired hypothyroidism E03.9 and Screening, lipid Z13.220 [place] [address] [address]12[address]- 5399 Oct, Hypothyroidism (acquired) E03.9 [place] [address] [id number] [place] [address] 71102- 0698 Oct, [facility] [address] [place] [id number] [place] [address] 83980- 1652 Sep, [facility] [address] [place] [id number] [place] [address] 70725- 6509 Sep, [facility] [address] 10242- 0865 Sep, [facility] [address] [place] [id number] [place] [address] 28284- 8863 Sep, Weight loss R63.4 ; Change in bowel habits R19.4 and Hypothyroidism (acquired) E03.9 [facility] [address] [address] Aug, [place] [address] [place] [id number] [place] [address] 36015- 4376 Jul, Hypothyroidism (acquired) E03.9 [facility] [address] [place] [id number] [place] [address] 588992- 0927 Jul, [place] [address] [place] [id number] [place] [address] 28670- 0603 May, Hypothyroidism (acquired) E03.9 [place] [address] [place] [id number] [place] [address] 374916- 9544 Apr, Hypothyroidism (acquired) E03.9 [place] [address] [place] [id number] [place] [address] 58170- 9629 Mar, Hypothyroidism (acquired) E03.9 and Arthralgia, unspecified joint M25.50 [place] [address] [place] [id number] [place] [address] 29847- 9358 Feb, Hypothyroidism (acquired) E03.9 [place] [address] [place] [id number] [place] [address] 59058- 8510 Feb, Dysuria R30.0 ; Encounter to establish care Z76.89 ; Arthralgia, unspecified joint M25.50 ; Fatigue, unspecified type R53.83 ; Low back pain M54.5 ; Other chronic pain G89.29 ; Family history of diabetes mellitus Z83.3 and History of stroke Z86.73 IMMUNIZATIONS No Known Immunizations SOCIAL HISTORY Never Assessed REASON FOR VISIT fever and blood in the urine WB-MA, cough and body aches PLAN OF CARE Activity Details Follow Up prn Reason: VITAL SIGNS Height 65 in 2017-12-29 Weight 167 lbs 2017-12-29 Temperature 97.4 degrees Fahrenheit 2017-12-29 Heart Rate 74 bpm 2017-12-29 Respiratory Rate 18 2017-12-29 BMI 27.79 kg/m2 2017-12-29 Blood pressure systolic 118 mmHg 2017-12-29 Blood pressure diastolic 76 mmHg 2017-12-29 MEDICATIONS Medication Instructions Dosage Frequency Start Date End Date Duration Status Loratadine 10 mg Orally Once a day as needed for cough 1 tablet December, Mar, 30 day(s) Active Macrobid 100 mg Orally every 12 hrs 1 capsule with food 12h December, December, 3 days Active Levothyroxine Sodium 50 mcg Orally Once a day 1 tablet on an empty stomach in the morning 24h 30 days Active Guaifenesin 400 mg Orally 2 times a day 1 tablet 12h December, December, 05 days Active RESULTS No Results PROCEDURES Procedure Date Ordered Result Body Site LIPID PANEL December 29, 2017 COMPREHEN METABOLIC PANEL December 29, 2017 URINALYSIS, AUTO, W/O SCOPE December 29, 2017 INSTRUCTIONS MEDICATIONS ADMINISTERED No Known Medications MEDICAL (GENERAL) HISTORY Type Description Date Medical History Cerebrovascular accident (CVA), unspecified mechanism Surgical History left breast lumpectomy 1999 Surgical History Had a shunt from her head to her abd when she had the stroke. It has been removed 2007 Hospitalization History lumpectomy 1999 Hospitalization History CVA 2007
--- OUTSIDE RECORDS SUMMARY | 2018-12-23 11:16 | XMS REPORT ---
Author Author DARRION BAIN Organization [facility] Address [address] [place] [address] Care Team Providers Care Belt Molder Name Role Phone DARRION BAIN Unavailable PROBLEMS Type Condition ICD9-CM Code CQK03-EP Code Onset Dates Condition Status SNOMED Code Problem Hypothyroidism (acquired) E03.9 Active 02422830 Problem GERD without esophagitis K21.9 Active 441826305 Problem Other headache syndrome G44.89 Active 656437116 ALLERGIES No Known Allergies SOCIAL HISTORY Never Assessed PLAN OF CARE Activity Details Follow Up prn with PCP Reason: VITAL SIGNS Height 65 in 2017-01-14 Weight 162.5 lbs 2017-01-14 Temperature 98.1 degrees Fahrenheit 2017-01-14 Heart Rate 66 bpm 2017-01-14 Respiratory Rate 18 2017-01-14 BMI 27.04 kg/m2 2017-01-14 Blood pressure systolic 108 mmHg 2017-01-14 Blood pressure diastolic 68 mmHg 2017-01-14 MEDICATIONS Medication Instructions Dosage Frequency Start Date End Date Duration Status Levothyroxine Sodium 50 MCG Orally Once a day 1 tablet on an empty stomach in the morning 24h 30 days Active Loratadine 10 mg Orally Once a day 1 tablet 24h December, Apr, 30 day(s) Active RESULTS Name Result Date Reference Range INFLUENZA A & B (IN HOUSE) 2017-01-14 INFLUENZA A negative INFLUENZA B negative Control + Lot # [id number] Exp date 07/2019 UA LONG DIP (IN HOUSE) 2017-01-14 Lot # [id number] Exp date 11/2017 Clarity clear Color yellow Odor none GLU negative PARESH negative KET negative SG 1.015 BLO Trace-intact pH 7.0 Protein negative URO 0.2 NIT negative SARMAD negative Lot # Exp date PROCEDURES Procedure Date Ordered Result Body Site INFLUENZA ASSAY W/OPTIC January 14, 2017 URINALYSIS, AUTO, W/O SCOPE January 14, 2017 IMMUNIZATIONS No Known Immunizations MEDICAL (GENERAL) HISTORY Type Description Date Medical History Cerebrovascular accident (CVA), unspecified mechanism Surgical History left breast lumpectomy 1999 Surgical History Had a shunt from her head to her abd when she had the stroke. It has been removed 2007 Hospitalization History lumpectomy 1999 Hospitalization History CVA 2008
--- OUTSIDE RECORDS SUMMARY | 2018-12-23 11:16 | XMS REPORT ---
Author Author JACQUES GLORIA [facility] Address [address] [place] [address] Care Team Providers Care Managed Care Director Name Role Phone JACQUES GLORIA Unavailable PROBLEMS Type Condition ICD9-CM Code EQP16-VG Code Onset Dates Condition Status SNOMED Code Problem Hypothyroidism (acquired) E03.9 Active 67759490 Problem GERD without esophagitis K21.9 Active 281889246 Problem Other headache syndrome G44.89 Active 687925202 ALLERGIES No Known Allergies ENCOUNTERS Encounter Location Date Diagnosis [place] [address] [address] Feb, [facility] [address] [address]- [address] December, Acute recurrent frontal sinusitis J01.11 [facility] [address] 09[address]- 5[address] 14 Dec, 2017 Coughing R05 ; Screening, lipid Z13.220 and Acute cystitis with hematuria N30.01 [place] [address] [place] [id number] [place] [address] 74199- 7022 December, Acute cystitis without hematuria N30.00 and Viral upper respiratory tract infection J06.9 [facility] [address] 14[address]- 6[address] December, Sore throat J02.9 [facility] [address] 360[address]- 3872 Oct, [facility] [address] [place] [id number] [place] [address] 40618 -7857 Aug, Acute cystitis with hematuria N30.01 [facility] [address] [place] [address] Jun, [facility] [address] [place] [id number] [place] [address] 09993- 8996 Jun, [facility] [address] [place] [id number] [place] [address] 19327- 0915 Apr, [facility] [address] [place] [id number] [place] [address] 37564- 8759 Apr, [facility] [address] [place] [id number] [place] [address] 22084- 2818 Mar, Weakness R53.1 ; Other fatigue R53.83 and Hypothyroidism ( acquired) E03.9 [facility] [address] [place] [id number] [place] [address] 07624- 2008 Feb, [facility] [address] [place] [id number] [place] [address] 60137- 6267 Feb, GERD without esophagitis K21.9 and Hypothyroidism (acquired ) E03.9 [facility] [address] [place] [id number] [place] [address] 52087- 7885 Jan, [facility] [address] [place] [id number] [place] [address] 68305- 0215 Jan, Acute upper respiratory infection, unspecified J06.9 [facility] [address] [place] [id number] [place] [address] 49318- 8236 Jan, [facility] [address] [place] [id number] [place] [address] 22643- 5693 Jan, Bronchitis J40 and Coughing R05 [facility] [address] [place] [id number] [place] [address] 42089- 2199 Jan, [facility] [address] [place] [id number] [place] [address] 08624- 6938 Jan, [facility] [address] [place] [id number] [place] [address] 22469- 5715 Jan, Wheezing R06.2 ; Bronchitis J40 and Cough R05 [facility] [address] [place] [id number] [place] [address] 88716- 1303 December, Acute nasopharyngitis J00 and Dysuria R30.0 [facility] [address] [place] [id number] [place] [address] 35930- 1442 17 Nov, 2016 [facility] [address] [place] [id number] [place] [address] 10208- 6124 Nov, [facility] [address] [place] [id number] [place] [address] 56303- 5884 Nov, [facility] [address] [address]- 1811 Nov, Other headache syndrome G44.89 ; Edema, unspecified type R60.9 ; Acquired hypothyroidism E03.9 and Screening, lipid Z13.220 [facility] [address] 7[address]89- 0988 Oct, Hypothyroidism (acquired) E03.9 [facility] [address] [place] [id number] [place] [address] 12594- 3380 Oct, [facility] [address] [place] [id number] [place] [address] 07368- 2809 20 Sep, 2016 [facility] [address] [place] [id number] [place] [address] 48198- 1422 Sep, [facility] [address] [place] [id number] [place] [address] 25118- 8186 Sep, [facility] [address] [place] [id number] [place] [address] 79957- 8027 Sep, Weight loss R63.4 ; Change in bowel habits R19.4 and Hypothyroidism (acquired) E03.9 [facility] [address] [place] [id number] [place] [address] 06664- 3727 Aug, [facility] [address] [place] [id number] [place] [address] 27500- 2183 Jul, Hypothyroidism (acquired) E03.9 [place] [address] [address]- [address] Jul, [place] [address] [place] [address] 780269- 0887 May, Hypothyroidism (acquired) E03.9 [place] [address] [place] [id number] [place] [address] 521943- 9418 Apr, Hypothyroidism (acquired) E03.9 [place] [address] [place] [id number] [place] [address] 797047- 5521 Mar, Hypothyroidism (acquired) E03.9 and Arthralgia, unspecified joint M25.50 [place] [address] [place] [id number] [place] [address] 29307- 5923 Feb, Hypothyroidism (acquired) E03.9 [place] [address] [place] [address] 12807- 4099 Feb, Dysuria R30.0 ; Encounter to establish care Z76.89 ; Arthralgia, unspecified joint M25.50 ; Fatigue, unspecified type R53.83 ; Low back pain M54.5 ; Other chronic pain G89.29 ; Family history of diabetes mellitus Z83.3 and History of stroke Z86.73 IMMUNIZATIONS No Known Immunizations SOCIAL HISTORY Never Assessed REASON FOR VISIT Fever, sore throat, and hurts to urinate-tmcdonald, Has body aches all over and feels like she might pass out PLAN OF CARE Activity Details Follow Up prn Reason: VITAL SIGNS Height 65 in 2017-12-26 Weight 167.1 lbs 2017-12-26 Temperature 98.5 degrees Fahrenheit 2017-12-26 Heart Rate 72 bpm 2017-12-26 Respiratory Rate 18 2017-12-26 BMI 27.80 kg/m2 2017-12-26 Blood pressure systolic 100 mmHg 2017-12-26 Blood pressure diastolic 66 mmHg 2017-12-26 MEDICATIONS Medication Instructions Dosage Frequency Start Date End Date Duration Status Levothyroxine Sodium 50 mcg Orally Once a day 1 tablet on an empty stomach in the morning 24h 30 days Active Macrobid 100 mg Orally every 12 hrs 1 capsule with food 12h December, December, 3 days Active Guaifenesin 400 mg Orally 2 times a day 1 tablet 12h December, December, 05 days Active RESULTS No Results PROCEDURES Procedure Date Ordered Result Body Site URINE CULTURE/COLONY COUNT December 26, 2017 URINALYSIS, AUTO, W/O SCOPE December 26, 2017 INSTRUCTIONS MEDICATIONS ADMINISTERED No Known Medications MEDICAL (GENERAL) HISTORY Type Description Date Medical History Cerebrovascular accident (CVA), unspecified mechanism Surgical History left breast lumpectomy 1999 Surgical History Had a shunt from her head to her abd when she had the stroke. It has been removed 2007 Hospitalization History lumpectomy 1999 Hospitalization History CVA 2007
--- OUTSIDE RECORDS SUMMARY | 2018-12-23 11:16 | XMS REPORT ---
Author Author NOVA HERNANDEZ [facility] Address [address] [place] [address] Care Team Providers Care Nutritionist Public Health Name Role Phone NOVA HERNANDEZ Unavailable PROBLEMS Type Condition ICD9-CM Code UEE95-IK Code Onset Dates Condition Status SNOMED Code Problem Hypothyroidism (acquired) E03.9 Active 76875521 Problem GERD without esophagitis K21.9 Active 404452996 Problem Other headache syndrome G44.89 Active 338726130 ALLERGIES No Known Allergies SOCIAL HISTORY No smoking Hx information available PLAN OF CARE VITAL SIGNS MEDICATIONS Medication Instructions Dosage Frequency Start Date End Date Duration Status Levothyroxine Sodium 50 MCG TAKE ONE TABLET BY MOUTH ONCE DAILY 30 Active RESULTS No Results PROCEDURES No Known procedures IMMUNIZATIONS No Known Immunizations
--- OUTSIDE RECORDS SUMMARY | 2018-12-23 11:16 | XMS REPORT ---
Author Author NOVA HERNANDEZ Organization [facility] Address [address] [place] [address] Care Team Providers Care Wood Crew Supervisor Name Role Phone NOVA HERNANDEZ Unavailable PROBLEMS Type Condition ICD9-CM Code KDS41-RF Code Onset Dates Condition Status SNOMED Code Problem Hypothyroidism (acquired) E03.9 Active 21636017 Problem GERD without esophagitis K21.9 Active 454322763 Problem Other headache syndrome G44.89 Active 201945193 ALLERGIES No Information ENCOUNTERS Encounter Location Date Diagnosis [place] [address] [address] December, Acute recurrent frontal sinusitis J01.11 [place] [address] [address]- [address] 14 Dec, 2017 Coughing R05 ; Screening, lipid Z13.220 and Acute cystitis with hematuria N30.01 [place] [address] [address]- 3488 December, Acute cystitis without hematuria N30.00 and Viral upper respiratory tract infection J06.9 [place] [address] 67990- 1873 December, Sore throat J02.9 [place] [address] 71849- 8992 Oct, [facility] [address] [address] Aug, Acute cystitis with hematuria N30.01 [place] [address] 00229- 1654 Jun, [place] [address] [place] [address]- 26[address] Jun, [facility] [address] [place] [id number] [place] [address] 18846- 4522 Apr, [facility] [address] [place] [id number] [place] [address] 48466- 7224 Apr, [facility] [address] [id number] [place] [address] 50811- 9030 Mar, Weakness R53.1 ; Other fatigue R53.83 and Hypothyroidism ( acquired) E03.9 [facility] [address] [place] [id number] [place] [address] 18718- 5351 Feb, [place] [address] 6[address]27- 6974 Feb, GERD without esophagitis K21.9 and Hypothyroidism (acquired ) E03.9 [facility] [address] [place] [id number] [place] [address] 85107- 9728 Jan, [facility] [address] [place] [id number] [place] [address] 34783- 3650 Jan, Acute upper respiratory infection, unspecified J06.9 [place] [address] [id number] [place] [address] 63821- 8777 Jan, [place] [address] [place] [id number] [place] [address] 24654- 8741 Jan, Bronchitis J40 and Coughing R05 [facility] [address] [place] [id number] [place] [address] 81389- 9393 Jan, [facility] [address] [place] [id number] [place] [address] 07287- 4709 Jan, [facility] [address] [place] [id number] [place] [address] 17100- 2753 Jan, Wheezing R06.2 ; Bronchitis J40 and Cough R05 [facility] [address] [place] [id number] [place] [address] 83196- 8638 December, Acute nasopharyngitis J00 and Dysuria R30.0 [facility] [address] [place] [id number] [place] [address] 15562- 5022 17 Nov, 2016 [facility] [address] [id number] [place] [address] 84716- 7550 Nov, [facility] [address] 86926- 5763 Nov, [facility] [address] 23258- 9510 Nov, Other headache syndrome G44.89 ; Edema, unspecified type R60.9 ; Acquired hypothyroidism E03.9 and Screening, lipid Z13.220 [facility] [address] 53484- 8269 Oct, Hypothyroidism (acquired) E03.9 [facility] [address] 13709- 2327 Oct, [facility] [address] [place] [id number] [place] [address] 76171- 3009 Sep, [facility] [address] [place] [id number] [place] [address] 24428- 5170 Sep, [facility] [address] [place] [id number] [place] [address] 68686- 8415 Sep, [facility] [address] [place] [id number] [place] [address] 13731- 3370 Sep, Weight loss R63.4 ; Change in bowel habits R19.4 and Hypothyroidism (acquired) E03.9 [facility] [address] 57349- 3369 Aug, [facility] [address] 66553- 6856 Jul, Hypothyroidism (acquired) E03.9 [facility] [address] 50774- 1086 Jul, [facility] [address] [place] [id number] [address] 1596 May, Hypothyroidism (acquired) E03.9 [facility] [address] [place] [id number] [address]- 2546 Apr, Hypothyroidism (acquired) E03.9 [place] [address] [place] [address] 41515- 8730 Mar, Hypothyroidism (acquired) E03.9 and Arthralgia, unspecified joint M25.50 [place] [address] [place] [address] 73861- 2916 Feb, Hypothyroidism (acquired) E03.9 [place] [address] [address]- 7976 Feb, Dysuria R30.0 ; Encounter to establish care Z76.89 ; Arthralgia, unspecified joint M25.50 ; Fatigue, unspecified type R53.83 ; Low back pain M54.5 ; Other chronic pain G89.29 ; Family history of diabetes mellitus Z83.3 and History of stroke Z86.73 IMMUNIZATIONS No Known Immunizations SOCIAL HISTORY Never Assessed REASON FOR VISIT Refill request PLAN OF CARE VITAL SIGNS MEDICATIONS [...]
--- OUTSIDE RECORDS SUMMARY | 2018-12-23 11:16 | XMS REPORT ---
Author Author RICKDARIO Rios [facility] Address [address] [place] [address] Care Team Providers Care Pet Caregiver Name Role Phone RICKDARIO Rios Unavailable PROBLEMS Type Condition ICD9-CM Code OKL51-FT Code Onset Dates Condition Status SNOMED Code Problem Hypothyroidism (acquired) E03.9 Active 09559200 Problem GERD without esophagitis K21.9 Active 876409793 Problem Other headache syndrome G44.89 Active 848975370 ALLERGIES No Known Allergies ENCOUNTERS Encounter Location Date Diagnosis [facility] [address] [address] Nov, [facility] [address] [address]65 Oct, [facility] [address] 15255 [address]86 Aug, Acute cystitis with hematuria N30.01 [facility] [address] [address]85[address] Jun, [facility] [id number] [place] [address]01- 1597 Jun, [facility] [address] [address] Apr, [facility] [address] 37[address]- [address]285 Apr, [facility] [address] 96493- 2836 Mar, Weakness R53.1 ; Other fatigue R53.83 and Hypothyroidism ( acquired) E03.9 [facility] [address] [address]- [address]93 Feb, [facility] [id number] [place] [address] 43468- 5694 Feb, GERD without esophagitis K21.9 and Hypothyroidism (acquired ) E03.9 [facility] [id number] [place] [address] 23573- 0730 Jan, [facility] [id number] [place] [address] 04487- 0458 Jan, Acute upper respiratory infection, unspecified J06.9 [facility] [id number] [place] [address] 25385- 1007 Jan, [facility] [id number] [place] [address] 32608- 7459 Jan, Bronchitis J40 and Coughing R05 [facility] [id number] [place] [address] 75282- 4926 Jan, [facility] [id number] [place] [address] 08724- 3543 Jan, [facility] [id number] [place] [address] 01759- 0035 Jan, Wheezing R06.2 ; Bronchitis J40 and Cough R05 [facility] [id number] [place] [address] 49278- 9162 December, Acute nasopharyngitis J00 and Dysuria R30.0 [facility] [id number] [place] [address] 18649- 8590 Nov, [facility] [id number] [place] [address] 28324- 5723 Nov, [facility] [id number] [place] [address] 20436- 0276 Nov, [facility] [id number] [place] [address] 71291- 7945 Nov, Other headache syndrome G44.89 ; Edema, unspecified type R60.9 ; Acquired hypothyroidism E03.9 and Screening, lipid Z13.220 [facility] [id number] [place] [address] 71798- 1331 Oct, Hypothyroidism (acquired) E03.9 [facility] [id number] [place] [address] 29227- 5010 Oct, [facility] [address] 08748- 5674 Sep, [facility] [id number] [place] [address] 82869- 4597 Sep, [facility] [address] 50972- 5380 Sep, [facility] [id number] [place] [address] 86262- 4952 Sep, Weight loss R63.4 ; Change in bowel habits R19.4 and Hypothyroidism (acquired) E03.9 [facility] [id number] [place] [address] 35911- 2622 Aug, [facility] [id number] [place] [address] 09162- 3194 Jul, Hypothyroidism (acquired) E03.9 [facility] [id number] [place] [address] 22578- 9090 Jul, [facility] [id number] [place] [address] 62703- 6865 May, Hypothyroidism (acquired) E03.9 [facility] [id number] [place] [address] 94025- 1716 Apr, Hypothyroidism (acquired) E03.9 [facility] [id number] [place] [address] 92200- 2857 Mar, Hypothyroidism (acquired) E03.9 and Arthralgia, unspecified joint M25.50 [facility] [address] [place] [address]- [address] 15 Feb, 2016 Hypothyroidism (acquired) E03.9 [facility] [address] [facility] [id number] [place] [address] Feb, Dysuria R30.0 ; Encounter to establish care Z76.89 ; Arthralgia, unspecified joint M25.50 ; Fatigue, unspecified type R53.83 ; Low back pain M54.5 ; Other chronic pain G89.29 ; Family history of diabetes mellitus Z83.3 and History of stroke Z86.73 IMMUNIZATIONS No Known Immunizations SOCIAL HISTORY Never Assessed REASON FOR VISIT cough x 1 month , patient states she saw Dr. Waldrop but the medicine didn't help and now is having back pain -- chantelle quintero PLAN OF CARE Activity Details Follow Up prn Reason: VITAL SIGNS Height 65 in 2017-02-10 Weight 161.0 lbs 2017-02-10 Temperature 98.0 degrees Fahrenheit 2017-02-10 Heart Rate 68 bpm 2017-02-10 Respiratory Rate 20 2017-02-10 BMI 26.79 kg/m2 2017-02-10 Blood pressure systolic 120 mmHg 2017-02-10 Blood pressure diastolic 70 mmHg 2017-02-10 MEDICATIONS Medication Instructions Dosage Frequency Start Date End Date Duration Status Mucinex 600 MG Orally every 12 hrs 1 tablet as needed 12h 14 Jan, 2017 Jan, 14 days Active Levothyroxine Sodium 50 MCG Orally Once a day 1 tablet on an empty stomach in the morning 24h 30 days Active ProAir HFA 108 (90 Base) MCG/ACT Inhalation every 4 hrs 2 puffs as needed 4h Jan, Active Loratadine 10 mg Orally Once a day 1 tablet 24h 30 Dec, 2016 Apr, 30 day(s) Active RESULTS Name Result Date Reference Range Xray : Chest (IN HOUSE) 2017-02-10 PROCEDURES Procedure Date Ordered Result Body Site CHEST X-RAY February 10, 2017 INSTRUCTIONS MEDICATIONS ADMINISTERED No Known Medications MEDICAL (GENERAL) HISTORY Type Description Date Medical History Cerebrovascular accident (CVA), unspecified mechanism Surgical History left breast lumpectomy 1999 Surgical History Had a shunt from her head to her abd when she had the stroke. It has been removed 2007 Hospitalization History lumpectomy 1999 Hospitalization History CVA 2007
--- OUTSIDE RECORDS SUMMARY | 2018-12-23 11:16 | XMS REPORT ---
Author Author NOVA HERNANDEZ [facility] Address [address] [place] [address] Care Team Providers Care Pumper Hand Name Role Phone NOVA HERNANDEZ Unavailable PROBLEMS Type Condition ICD9-CM Code EHB96-OJ Code Onset Dates Condition Status SNOMED Code Problem Hypothyroidism (acquired) E03.9 Active 224645623 Assessment Hypothyroidism (acquired) E03.9 Mar, Active 000375330 Assessment Arthralgia, unspecified joint M25.50 Mar, Active 36155052 ALLERGIES Substance Reaction Event Type Date Status N.K.D.A. Unknown Non Drug Allergy Mar, Unknown SOCIAL HISTORY No smoking Hx information available PLAN OF CARE VITAL SIGNS Height 65 in 2016-04-17 Weight 165.7 lbs 2016-04-17 Heart Rate 62 bpm 2016-04-17 Respiratory Rate 18 2016-04-17 BMI 27.57 kg/m2 2016-04-17 Blood pressure systolic 118 mmHg 2016-04-17 Blood pressure diastolic 62 mmHg 2016-04-17 MEDICATIONS Medication Instructions Dosage Frequency Start Date End Date Duration Status Levothyroxine Sodium 25 MCG Orally Once a day 1 tablet 24h Feb, 30 day(s) Active RESULTS No Results PROCEDURES Procedure Date Ordered Related Diagnosis Body Site Office Visit, Est Pt., Level 3 Apr 17, 2016 IMMUNIZATIONS No Known Immunizations
--- OUTSIDE RECORDS SUMMARY | 2018-12-23 11:16 | XMS REPORT ---
Author Author NOVA HERNANDEZ Organization [facility] Address [address] [place] [address] Care Team Providers Care Natural Resources Technician Name Role Phone NOVA HERNANDEZ Unavailable PROBLEMS Type Condition ICD9-CM Code JVT95-YK Code Onset Dates Condition Status SNOMED Code Problem Hypothyroidism (acquired) E03.9 Active 48368758 Problem GERD without esophagitis K21.9 Active 897676334 Problem Other headache syndrome G44.89 Active 970214251 ALLERGIES No Information ENCOUNTERS Encounter Location Date Diagnosis [facility] [address] [address]- [address] Oct, [facility] [address] [address] Aug, Acute cystitis with hematuria N30.01 [facility] [address] 48313- 0073 Jun, [facility] [address] 37307- 4600 Jun, [facility] [id number] [place] [address] 41520- 0552 Apr, [facility] [address] 17535- 5431 Apr, [facility] [address] 92161- 4626 Mar, Weakness R53.1 ; Other fatigue R53.83 and Hypothyroidism ( acquired) E03.9 [facility] [address] 20395- 6765 Feb, [facility] [address] 064[address]- 2211 Feb, GERD without esophagitis K21.9 and Hypothyroidism (acquired ) E03.9 [place] [address] 50[address]- 2469 Jan, [place] [id number] [place] [address] 14496- 4435 Jan, Acute upper respiratory infection, unspecified J06.9 [place] [address] 82166- 1004 Jan, [place] [address] 79464- 1607 Jan, Bronchitis J40 and Coughing R05 [place] [id number] [place] [address] 55141- 6568 Jan, [place] [address] 17601- 5247 Jan, [place] [id number] [place] [address] 47708- 6556 Jan, Wheezing R06.2 ; Bronchitis J40 and Cough R05 [place] [id number] [place] [address] 18055- 7861 December, Acute nasopharyngitis J00 and Dysuria R30.[address] [address]54- 5528 Nov, [place] [id number] [place] [address] 09447- 9465 Nov, [place] [address] 77814- 3651 Nov, [place] [address] 95863- 4253 Nov, Other headache syndrome G44.89 ; Edema, unspecified type R60.9 ; Acquired hypothyroidism E03.9 and Screening, lipid Z13.220 [place] [address] [address] 357[address] Oct, Hypothyroidism (acquired) E03.9 [facility] [id number] [place] [address] 55700- 8046 Oct, [facility] [id number] [place] [address] 06974- 9068 Sep, [facility] [id number] [place] [address] 45123- 0865 Sep, [facility] [id number] [place] [address] 28471- 1998 Sep, [facility] [id number] [place] [address] 32433- 9603 Sep, Weight loss R63.4 ; Change in bowel habits R19.4 and Hypothyroidism (acquired) E03.9 [facility] [id number] [place] [address] 10524- 4920 Aug, [facility] [id number] [place] [address] 68186- 1176 Jul, Hypothyroidism (acquired) E03.9 [facility] [id number] [place] [address] 48814- 6260 Jul, [facility] [address] [place] [address] 98790- 2805 May, Hypothyroidism (acquired) E03.9 [facility] [id number] [place] [address] 48990- 7467 Apr, Hypothyroidism (acquired) E03.9 [facility] [id number] [place] [address] 919970- 3120 Mar, Hypothyroidism (acquired) E03.9 and Arthralgia, unspecified joint M25.50 [facility] [address] [address]- 5495 Feb, Hypothyroidism (acquired) E03.9 [place] [address] [facility] [id number] [place] [address]- 5808 Feb, Dysuria R30.0 ; Encounter to establish [...] Frequency Start Date End Date Duration Status Esomeprazole Magnesium 20 mg Orally Once a day 1 capsule 24h Feb, 30 day(s) Active RESULTS No Results PROCEDURES No [...]
--- OUTSIDE RECORDS SUMMARY | 2018-12-23 11:16 | XMS REPORT ---
Author Author NOVA HERNANDEZ Organization [facility] Address [address] [place] [address] Care Team Providers Care Database Engineer Name Role Phone NOVA HERNANDEZ Unavailable PROBLEMS Type Condition ICD9-CM Code ASI54-OL Code Onset Dates Condition Status SNOMED Code Problem Hypothyroidism (acquired) E03.9 Active 25743178 Problem GERD without esophagitis K21.9 Active 766801145 Problem Other headache syndrome G44.89 Active 833313080 ALLERGIES No Information ENCOUNTERS Encounter Location Date Diagnosis [facility] [address] [address]89- 4884 Jan, [facility] [address] 38327- 8499 Oct, [facility] [address] [address]329 Aug, Acute cystitis with hematuria N30.01 [facility] [address] 60782- 6880 Jun, [facility] [address] 70736- 3710 Jun, [facility] [address] 02051- 3595 Apr, [facility] [address] 31405- 8569 Apr, [facility] [address] 89536- 0214 Mar, Weakness R53.1 ; Other fatigue R53.83 and Hypothyroidism ( acquired) E03.9 [facility] [address] 51835- 0199 Feb, [facility] [id number] [place] [address] 05678- 8231 Feb, GERD without esophagitis K21.9 and Hypothyroidism (acquired ) E03.9 [facility] [id number] [place] [address] 27076- 5298 Jan, [facility] [address] 35198- 5470 Jan, Acute upper respiratory infection, unspecified J06.9 [facility] [id number] [place] [address] 52496- 3672 Jan, [facility] [id number] [place] [address] 21745- 8978 Jan, Bronchitis J40 and Coughing R05 [facility] [id number] [place] [address] 79011- 9279 Jan, [facility] [id number] [place] [address] 78737- 4799 Jan, [facility] [id number] [place] [address] 28590- 0056 Jan, Wheezing R06.2 ; Bronchitis J40 and Cough R05 [facility] [id number] [place] [address] 78504- 2103 December, Acute nasopharyngitis J00 and Dysuria R30.0 [facility] [id number] [place] [address] 13663- 7434 Nov, [facility] [id number] [place] [address] 98115- 8495 Nov, [facility] [id number] [place] [address] 30800- 4789 Nov, [facility] [id number] [place] [address] 60720- 0016 Nov, Other headache syndrome G44.89 ; Edema, unspecified type R60.9 ; Acquired hypothyroidism E03.9 and Screening, lipid Z13.220 [facility] [id number] [place] [address] 76542- 9356 Oct, Hypothyroidism (acquired) E03.9 [facility] [id number] [place] [address] 83521- 2476 Oct, [facility] [address] 94507- 2461 Sep, [facility] [id number] [place] [address] 21034- 9101 Sep, [facility] [address] 24442- 1872 Sep, [facility] [id number] [place] [address] 67982- 2507 Sep, Weight loss R63.4 ; Change in bowel habits R19.4 and Hypothyroidism (acquired) E03.9 [facility] [id number] [place] [address] 52196- 3677 Aug, [facility] [id number] [place] [address] 17861- 6572 Jul, Hypothyroidism (acquired) E03.9 [facility] [id number] [place] [address] 51182- 6488 Jul, [facility] [id number] [place] [address] 85426- 8930 May, Hypothyroidism (acquired) E03.9 [facility] [id number] [place] [address] 13971- 7689 Apr, Hypothyroidism (acquired) E03.9 [facility] [id number] [place] [address] 15521- 6030 Mar, Hypothyroidism (acquired) E03.9 and Arthralgia, unspecified joint M25.50 [facility] [id number] [address]- 9627 Feb, Hypothyroidism (acquired) E03.9 [facility] [address] [facility] [id number] [place] [address]- 9951 Feb, Dysuria R30.0 ; Encounter to establish care Z76.89 ; Arthralgia, unspecified joint M25.50 ; Fatigue, unspecified type R53.83 ; Low back pain M54.5 ; Other chronic pain G89.29 ; Family history of diabetes mellitus Z83.3 and History of stroke Z86.73 IMMUNIZATIONS No Known Immunizations SOCIAL HISTORY Never Assessed REASON FOR VISIT Headache PLAN OF CARE VITAL SIGNS MEDICATIONS Unknown [...]
--- OUTSIDE RECORDS SUMMARY | 2018-12-23 11:17 | XMS REPORT ---
Author Author NOVA HERNANDEZ Organization [facility] Address [address] [place] [address] Care Team Providers Care Order Filler Name Role Phone NOVA HERNANDEZ Unavailable PROBLEMS Type Condition ICD9-CM Code HUF99-YM Code Onset Dates Condition Status SNOMED Code Problem Hypothyroidism (acquired) E03.9 Active 86549147 Problem GERD without esophagitis K21.9 Active 404381153 Problem Other headache syndrome G44.89 Active 602666786 ALLERGIES No Information ENCOUNTERS Encounter Location Date Diagnosis [facility] [address] [address]- 9104 Jan, [facility] [address] 58399- 9438 Oct, [facility] [address] [address] -[address]84 Aug, Acute cystitis with hematuria N30.01 [facility] [address] 26271- 6050 Jun, [facility] [address] 61123- 3725 Jun, [facility] [address] 25598- 9388 Apr, [facility] [address] 54536- 5354 Apr, [facility] [address] 56263- 1424 Mar, Weakness R53.1 ; Other fatigue R53.83 and Hypothyroidism ( acquired) E03.9 [facility] [address] 47859- 8013 Feb, [facility] [id number] [place] [address] 46184- 7379 Feb, GERD without esophagitis K21.9 and Hypothyroidism (acquired ) E03.9 [facility] [id number] [place] [address] 02973- 2088 Jan, [facility] [address] 04039- 5217 Jan, Acute upper respiratory infection, unspecified J06.9 [facility] [id number] [place] [address] 27887- 8748 Jan, [facility] [id number] [place] [address] 48709- 8878 Jan, Bronchitis J40 and Coughing R05 [facility] [id number] [place] [address] 76975- 9770 Jan, [facility] [id number] [place] [address] 79316- 7350 Jan, [facility] [id number] [place] [address] 44903- 2952 Jan, Wheezing R06.2 ; Bronchitis J40 and Cough R05 [facility] [address] [id number] [place] [address] 21929- 7959 December, Acute nasopharyngitis J00 and Dysuria R30.0 [facility] [id number] [place] [address] 15248- 8092 Nov, [facility] [id number] [place] [address] 81525- 4469 Nov, [facility] [id number] [place] [address] 43658- 6065 Nov, [facility] [id number] [place] [address] 98075- 6223 Nov, Other headache syndrome G44.89 ; Edema, unspecified type R60.9 ; Acquired hypothyroidism E03.9 and Screening, lipid Z13.220 [facility] [id number] [place] [address] 39505- 5253 Oct, Hypothyroidism (acquired) E03.9 [facility] [id number] [place] [address] 44046- 0586 Oct, [facility] [address] 03092- 9184 Sep, [facility] [id number] [place] [address] 16477- 1621 Sep, [facility] [address] 47487- 0006 Sep, [facility] [id number] [place] [address] 25437- 3770 Sep, Weight loss R63.4 ; Change in bowel habits R19.4 and Hypothyroidism (acquired) E03.9 [facility] [id number] [place] [address] 84788- 4979 Aug, [facility] [id number] [place] [address] 55062- 1640 Jul, Hypothyroidism (acquired) E03.9 [facility] [id number] [place] [address] 30708- 9886 Jul, [facility] [id number] [place] [address] 81296- 7577 May, Hypothyroidism (acquired) E03.9 [facility] [id number] [place] [address] 22366- 7687 Apr, Hypothyroidism (acquired) E03.9 [facility] [id number] [place] [address] 76433- 7808 Mar, Hypothyroidism (acquired) E03.9 and Arthralgia, unspecified joint M25.50 [facility] [id number] [place] [address]- 8227 Feb, Hypothyroidism (acquired) E03.9 [facility] [address] [facility] [id number] [place] [address]- 5703 Feb, Dysuria R30.0 ; Encounter to establish care Z76.89 ; Arthralgia, unspecified joint M25.50 ; Fatigue, unspecified type R53.83 ; Low back pain M54.5 ; Other chronic pain G89.29 ; Family history of diabetes mellitus Z83.3 and History of stroke Z86.73 IMMUNIZATIONS No Known Immunizations SOCIAL HISTORY Never Assessed REASON FOR VISIT Well Woman Exam PLAN OF CARE VITAL SIGNS MEDICATIONS Unknown [...]
--- OUTSIDE RECORDS SUMMARY | 2018-12-23 11:17 | XMS REPORT ---
Author Author NOVA HERNANDEZ Organization [employer] Address Unknown Phone Unavailable Care Team Providers Care Easter Bunny Name Role Phone NOVA HERNANDEZ CP Unavailable Allergies, Adverse Reactions, Alerts Substance Reaction Event Type N.K.D.A. Info Not Available Non Drug Allergy Problems Problem Type Condition Code Onset Dates Condition Status Assessment History of stroke Z86.73 Active Assessment Encounter to establish care Z76.89 Active Assessment Arthralgia, unspecified joint M25.50 Active Assessment Dysuria R30.0 Active Assessment Other chronic pain G89.29 Active Assessment Family history of diabetes mellitus Z83.3 Active Assessment Fatigue, unspecified type R53.83 Active Assessment Low back pain M54.5 Active Medications Medication Code System Code Instructions Start Date End Date Status Dosage Bactrim DS [facility] [address]-93 800-160 MG Orally Twice a day February 27, 2016 March 05, 2016 1 tablet Procedures Procedure Coding System Code Date LIPID PANEL CPT-4 43522 February 27, 2016 COMPLETE CBC W/AUTO DIFF WBC CPT-4 64877 February 27, 2016 URINALYSIS, AUTO, W/O SCOPE CPT-4 83405 February 27, 2016 VENIPUNCT, ROUTINE* CPT-4 94060 February 27, 2016 COMPREHEN METABOLIC PANEL CPT-4 38416 February 27, 2016 ASSAY THYROID STIM HORMONE CPT-4 06871 February 27, 2016 Office Visit, New Pt., Level 3 CPT-4 55034 February 27, 2016 C-REACTIVE PROTEIN CPT-4 44451 February 27, 2016 Vital Signs Date/Time: February 27, 2016 Cardiac Monitoring Heart Rate 66 bpm Weight 160 lbs Height 65 in BMI 26.62 Index Blood Pressure Diastolic 62 mmHg Blood Pressure Systolic 102 mmHg Results No Known Results Summary Purpose eClinicalWorks Submission
--- OUTSIDE RECORDS SUMMARY | 2018-12-23 11:17 | XMS REPORT ---
Author Author ERICK MACDONALD [facility] Address [address] [place] [address] Care Team Providers Care Pharmacy Operations Specialist Name Role Phone ERICK MACDONALD Unavailable PROBLEMS Type Condition ICD9-CM Code XNQ89-PR Code Onset Dates Condition Status SNOMED Code Problem Hypothyroidism (acquired) E03.9 Active 56279875 Problem GERD without esophagitis K21.9 Active 133405882 Problem Other headache syndrome G44.89 Active 468975104 ALLERGIES No Known Allergies ENCOUNTERS Encounter Location Date Diagnosis [place] [address] [address] Feb, [place] [address] [address] December, Acute recurrent frontal sinusitis J01.11 [place] [address] [address] December, Coughing R05 ; Screening, lipid Z13.220 and Acute cystitis with hematuria N30.01 [place] [address] [place] [id number] [place] [address] December, Acute cystitis without hematuria N30.00 and Viral upper respiratory tract infection J06.9 [facility] [address] [address] December, Sore throat J02.9 [place] [address] [address] Oct, [facility]ALK [facility] [address] [place] [id number] [place] [address] Aug, Acute cystitis with hematuria N30.01 [place] [address] [place] [address] Jun, [facility] [address] [place] [id number] [place] [address] Jun, [facility] [address] [place] [id number] [place] [address] 98781- 8796 Apr, [facility] [address] [address] Apr, [facility] [address] [address] Mar, Weakness R53.1 ; Other fatigue R53.83 and Hypothyroidism ( acquired) E03.9 [place] [address] [address] Feb, [facility] [address] [address] Feb, GERD without esophagitis K21.9 and Hypothyroidism (acquired ) E03.9 [facility] [address] [place] [id number] [place] [address]- 295[address] Jan, [facility] [address] [address] Jan, Acute upper respiratory infection, unspecified J06.9 [facility] [address] [place] [id number] [place] [address] Jan, [facility] [address] [place] [id number] [place] [address] 8110[address]- 40[address] Jan, Bronchitis J40 and Coughing R05 [facility] [address] [place] [id number] [place] [address] 928[address]- 07[address] Jan, [facility] [address] [place] [id number] [place] [address] 17604- 2[address] Jan, [facility] [address] [place] [id number] [place] [address] 99045- 5972 Jan, Wheezing R06.2 ; Bronchitis J40 and Cough R05 [facility] [address] [place] [id number] [place] [address] 07[address]- 5220 December, Acute nasopharyngitis J00 and Dysuria R30.0 [facility] [address] [place] [id number] [place] [address] 20527- 99[address] 17 Nov, 2016 [facility] [address] [place] [id number] [place] [address] 46974- 6909 Nov, [facility] [address] [place] [id number] [place] [address] 22146- 50[address] Nov, [facility] [address] [address] Nov, Other headache syndrome G44.89 ; Edema, unspecified type R60.9 ; Acquired hypothyroidism E03.9 and Screening, lipid Z13.220 [place] [address] [address] Oct, Hypothyroidism (acquired) E03.9 [facility] [address] [place] [id number] [place] [address] 89728- 3[address] Oct, [facility] [address] [place] [id number] [place] [address] 12948- 4888 20 Sep, 2016 [facility] [address] [place] [id number] [place] [address] 28788- 4979 Sep, [facility] [address] [place] [id number] [place] [address] 30747- 9493 Sep, [facility] [address] [place] [id number] [place] [address] 84740- 1994 Sep, Weight loss R63.4 ; Change in bowel habits R19.4 and Hypothyroidism (acquired) E03.9 [facility] [address] [place] [id number] [place] [address] 52505- 64[address] Aug, [facility] [address] [address] Jul, Hypothyroidism (acquired) E03.9 [place] [address] [place] [address] 66961- 9032 Jul, [place] [address] [place] [id number] [place] [address] 251144- 8136 May, Hypothyroidism (acquired) E03.9 [place] [address] [place] [id number] [place] [address] 68[address]- 6[address] Apr, Hypothyroidism (acquired) E03.9 [place] [address] [place] [id number] [place] [address] 72936- 18[address] Mar, Hypothyroidism (acquired) E03.9 and Arthralgia, unspecified joint M25.50 [place] [address] [place] [id number] [place] [address] 659[address]- 12[address] 15 Feb, 2016 Hypothyroidism (acquired) E03.9 [place] [address] [place] [id number] [place] [address]21- 94[address] Feb, Dysuria R30.0 ; Encounter to establish care Z76.89 ; Arthralgia, unspecified joint M25.50 ; Fatigue, unspecified type R53.83 ; Low back pain M54.5 ; Other chronic pain G89.29 ; Family history of diabetes mellitus Z83.3 and History of stroke Z86.73 IMMUNIZATIONS No Known Immunizations SOCIAL HISTORY Never Assessed REASON FOR VISIT UTI symptoms Pt states she has pain in lower abdomen along with painful urination and frequency as well as blood in urine all since Friday MERLYN Gibson PLAN OF CARE Activity Details Follow Up prn Reason: VITAL SIGNS Height 65 in 2017-09-12 Weight 161.0 lbs 2017-09-12 Temperature 96.7 degrees Fahrenheit 2017-09-12 Heart Rate 84 bpm 2017-09-12 Respiratory Rate 20 2017-09-12 BMI 26.79 kg/m2 2017-09-12 Blood pressure systolic 122 mmHg 2017-09-12 Blood pressure diastolic 76 mmHg 2017-09-12 MEDICATIONS Medication Instructions Dosage Frequency Start Date End Date Duration Status Levothyroxine Sodium 50 mcg Orally Once a day 1 tablet on an empty stomach in the morning 24h 30 days Active ProAir HFA 108 (90 Base) MCG/ACT Inhalation every 4 hrs 2 puffs as needed 4h 06 Jan, 2017 Not-Taking Pyridium 200 MG Orally Three times a day 1 tablet after meals 8h Aug, Aug, 2 day(s) Active Esomeprazole Magnesium 20 mg Orally Once a day 1 capsule 24h Feb, 30 day(s) Not-Taking Bactrim DS 800-160 MG Orally twice daily 1 tablet Aug, Aug, 3 days Active RESULTS No Results PROCEDURES Procedure Date Ordered Result Body Site URINE CULTURE/COLONY COUNT Sep 12, 2017 URINALYSIS, AUTO, W/O SCOPE Sep 12, 2017 INSTRUCTIONS MEDICATIONS ADMINISTERED No Known Medications MEDICAL (GENERAL) HISTORY Type Description Date Medical History Cerebrovascular accident (CVA), unspecified mechanism Surgical History left breast lumpectomy 1999 Surgical History Had a shunt from her head to her abd when she had the stroke. It has been removed 2007 Hospitalization History lumpectomy 1999 Hospitalization History CVA 2007
--- OUTSIDE RECORDS SUMMARY | 2018-12-23 11:17 | XMS REPORT ---
Author Author NOVA HERNANDEZ [facility] eClinicalWorks Address Unknown Phone Unavailable Care Team Providers Care Police Communications Dispatcher Name Role Phone NOVA HERNANDEZ CP Unavailable Allergies No Known Allergies Problems Problem Type Condition Code Onset Dates Condition Status Assessment Hypothyroidism (acquired) E03.9 Active Problem Hypothyroidism (acquired) E03.9 Active Medications Medication Code System Code Instructions Start Date End Date Status Dosage Levothyroxine Sodium [facility] [address]-42 50 MCG Orally Once a day March 01, 2016 1 tablet Results No Known Results Summary Purpose eClinicalWorks Submission
--- OUTSIDE RECORDS SUMMARY | 2018-12-23 11:17 | XMS REPORT ---
Author Author DARRION BAIN Organization [facility] Address [address] [place] [address] Care Team Providers Care Crew Leader/Control Room Operator Name Role Phone DARRION BAIN Unavailable PROBLEMS Type Condition ICD9-CM Code OCT61-LM Code Onset Dates Condition Status SNOMED Code Problem Hypothyroidism (acquired) E03.9 Active 61510355 Problem GERD without esophagitis K21.9 Active 788152624 Problem Other headache syndrome G44.89 Active 330444616 ALLERGIES No Known Allergies SOCIAL HISTORY Never Assessed PLAN OF CARE Activity Details Follow Up 2 Weeks w/ PCP Jamshid Reason: VITAL SIGNS Height 65 in 2017-01-21 Weight 162 lbs 2017-01-21 Temperature 98.5 degrees Fahrenheit 2017-01-21 Heart Rate 90 bpm 2017-01-21 Respiratory Rate 20 2017-01-21 BMI 26.96 kg/m2 2017-01-21 Blood pressure systolic 100 mmHg 2017-01-21 Blood pressure diastolic 72 mmHg 2017-01-21 MEDICATIONS Medication Instructions Dosage Frequency Start Date End Date Duration Status Azithromycin 250 MG Orally Once a day 2 tablets on the first day, then 1 tablet daily for 4 days 24h Jan, Jan, 5 day(s) Active Loratadine 10 mg Orally Once a day 1 tablet 24h December, Apr, 30 day(s) Active Levothyroxine Sodium 50 MCG Orally Once a day 1 tablet on an empty stomach in the morning 24h 30 days Active ProAir HFA 108 (90 Base) MCG/ACT Inhalation every 4 hrs 2 puffs as needed 4h Jan, Active RESULTS Name Result Date Reference Range Xray : Chest (IN HOUSE) 2017-01-21 PROCEDURES Procedure Date Ordered Result Body Site CHEST X-RAY January 21, 2017 IMMUNIZATIONS No Known Immunizations MEDICAL (GENERAL) HISTORY Type Description Date Medical History Cerebrovascular accident (CVA), unspecified mechanism Surgical History left breast lumpectomy 1999 Surgical History Had a shunt from her head to her abd when she had the stroke. It has been removed 2007 Hospitalization History lumpectomy 1999 Hospitalization History CVA 2007
--- OUTSIDE RECORDS SUMMARY | 2018-12-23 11:17 | XMS REPORT ---
Author Author NOVA HERNANDEZ [facility] Address [address] [place] [address] Care Team Providers Care Parcel Post Truck Driver Name Role Phone NOVA HERNANDEZ Unavailable PROBLEMS Type Condition ICD9-CM Code NYI93-DL Code Onset Dates Condition Status SNOMED Code Problem Hypothyroidism (acquired) E03.9 Active 444474915 ALLERGIES Unknown Allergies SOCIAL HISTORY No smoking Hx information available PLAN OF CARE VITAL SIGNS MEDICATIONS Unknown Medications RESULTS No Results PROCEDURES No Known procedures IMMUNIZATIONS No Known Immunizations
--- OUTSIDE RECORDS SUMMARY | 2018-12-23 11:17 | XMS REPORT ---
Author Author NOVA HERNANDEZ Organization [facility] Address [address] [place] [address] Care Team Providers Care Charge Gang Weigher Name Role Phone NOVA HERNANDEZ Unavailable PROBLEMS Type Condition ICD9-CM Code UCC74-EQ Code Onset Dates Condition Status SNOMED Code Problem Hypothyroidism (acquired) E03.9 Active 47869360 Problem GERD without esophagitis K21.9 Active 723859342 Problem Other headache syndrome G44.89 Active 655548004 ALLERGIES No Information ENCOUNTERS Encounter Location Date Diagnosis [facility] [address] [address] December, Coughing R05 ; Screening, lipid Z13.220 and Acute cystitis with hematuria N30.01 [facility] [address] [address] December, Acute cystitis without hematuria N30.00 and Viral upper respiratory tract infection J06.9 [facility] [address] [place] [id number] [place] [address] December, Sore throat J02.9 [facility] [address] [place] [id number] [place] [address] 20[address]- [address] Oct, [facility] [address] [place] [id number] [place] [address] Aug, Acute cystitis with hematuria N30.01 [facility] [address] [address] Jun, [facility] [address] [address]- [address] Jun, [facility] [address] [address] Apr, [facility] [address] [address] Apr, [place] [address] [address] Mar, Weakness R53.1 ; Other fatigue R53.83 and Hypothyroidism ( acquired) E03.9 [facility] [address] [address] Feb, GERD without esophagitis K21.9 and Hypothyroidism (acquired ) E03.9 [place] [address] [address]- [address] Feb, [place] [address] [address] Jan, [place] [address] [address]- [address] Jan, Acute upper respiratory infection, unspecified J06.9 [place] [address] [address]- [address] Jan, [place] [address] 0[address]- 8554 Jan, Bronchitis J40 and Coughing R05 [place] [address] [address]- [address] Jan, [place] [address] [address]- [address] Jan, Wheezing R06.2 ; Bronchitis J40 and Cough R05 [place] [address] [address]- [address] Jan, [place] [address] [address]- [address] December, Acute nasopharyngitis J00 and Dysuria R30.0 [place] [address] [address]- 7566 17 Nov, 2016 [facility] [address] [place] [id number] [place] [address] 37511- 2055 Nov, [facility] [address] [place] [id number] [place] [address] 91018- 0056 Nov, [facility] [address] [place] [id number] [place] [address] 36125- 0323 Nov, Other headache syndrome G44.89 ; Edema, unspecified type R60.9 ; Acquired hypothyroidism E03.9 and Screening, lipid Z13.220 [facility] [address] [place] [id number] [place] [address] 09625- 8999 Oct, Hypothyroidism (acquired) E03.9 [facility] [address] [place] [id number] [place] [address] 00604- 5574 Oct, [facility] [address] [address]- [address] Sep, [facility] [address] [place] [id number] [place] [address] 77689- 7772 Sep, [facility] [address] [place] [id number] [place] [address] 79904- 0599 Sep, [facility] [address] [place] [id number] [place] [address] 51876- 5712 Sep, Weight loss R63.4 ; Change in bowel habits R19.4 and Hypothyroidism (acquired) E03.9 [facility] [address] [place] [id number] [place] [address] 776[address]- [address] Aug, [facility] [address] [place] [id number] [place] [address] 70997- 6613 Jul, Hypothyroidism (acquired) E03.9 [facility] [address] [place] [id number] [place] [address] 06280- 8524 Jul, [facility] [address] [place] [id number] [place] [address] 48051- 3995 May, Hypothyroidism (acquired) E03.9 [facility] [address] [facility] [id number] [address] Apr, Hypothyroidism (acquired) E03.9 [place] [address] [place] [id number] [address] Mar, Hypothyroidism (acquired) E03.9 and Arthralgia, unspecified joint M25.50 [place] [address] [address] Feb, Hypothyroidism (acquired) E03.9 [place] [address] [place] [id number] [address] Feb, Dysuria R30.0 ; Encounter to establish [...]
--- OUTSIDE RECORDS SUMMARY | 2018-12-23 11:17 | XMS REPORT ---
Author Author NOVA HERNANDEZ [facility] eClinicalWorks Address Unknown Phone Unavailable Care Team Providers Care Social Work Manager Name Role Phone NOVA HERNANDEZ CP Unavailable Allergies No Known Allergies Problems Problem Type Condition Code Onset Dates Condition Status Assessment Hypothyroidism (acquired) E03.9 Active Problem Hypothyroidism (acquired) E03.9 Active Medications Medication Code System Code Instructions Start Date End Date Status Dosage Levothyroxine Sodium [facility] [address]-64 25 MCG Orally Once a day March 01, 2016 1 tablet Results No Known Results Summary Purpose eClinicalWorks Submission
--- OUTSIDE RECORDS SUMMARY | 2018-12-23 11:17 | XMS REPORT ---
Author Author DARRION BAIN [facility] Address [address] [place] [address] Care Team Providers Care Industrial Therapist Name Role Phone DARRION BAIN Unavailable PROBLEMS Type Condition ICD9-CM Code TVA39-NI Code Onset Dates Condition Status SNOMED Code Problem Hypothyroidism (acquired) E03.9 Active 83857077 Problem GERD without esophagitis K21.9 Active 640863960 Problem Other headache syndrome G44.89 Active 874885467 ALLERGIES No Information SOCIAL HISTORY Never Assessed PLAN OF CARE VITAL SIGNS MEDICATIONS Unknown Medications RESULTS No Results PROCEDURES No Known procedures IMMUNIZATIONS No Known Immunizations MEDICAL (GENERAL) HISTORY Type Description Date Medical History Cerebrovascular accident (CVA), unspecified mechanism Surgical History left breast lumpectomy 1999 Surgical History Had a shunt from her head to her abd when she had the stroke. It has been removed 2007 Hospitalization History lumpectomy 1999 Hospitalization History CVA 2007
--- OUTSIDE RECORDS SUMMARY | 2018-12-23 11:17 | XMS REPORT ---
Author Author NOVA HERNANDEZ [facility] Address [address] [place] [address] Care Team Providers Care Manager Managed [employer]up Services Name Role Phone NOVA HERNANDEZ Unavailable PROBLEMS Type Condition ICD9-CM Code QXV53-HY Code Onset Dates Condition Status SNOMED Code Problem Hypothyroidism (acquired) E03.9 Active 505574943 Assessment Hypothyroidism (acquired) E03.9 Apr, Active 39570805 ALLERGIES Unknown Allergies SOCIAL HISTORY No smoking Hx information available PLAN OF CARE VITAL SIGNS MEDICATIONS Unknown Medications RESULTS Name Result Date Reference Range TSH 2016-05-16 TSH 4.290 0.450-4.500 PROCEDURES Procedure Date Ordered Related Diagnosis Body Site ASSAY THYROID STIM HORMONE May 16, 2016 VENIPUNCT, ROUTINE* May 16, 2016 IMMUNIZATIONS No Known Immunizations
--- OUTSIDE RECORDS SUMMARY | 2018-12-23 11:17 | XMS REPORT ---
Author Author NOVA HERNANDEZ [facility] Address [address] [place] [address] Care Team Providers Care Chief Jailer Name Role Phone NOVA HERNANDEZ Unavailable PROBLEMS Type Condition ICD9-CM Code FDL32-ZN Code Onset Dates Condition Status SNOMED Code Problem Hypothyroidism (acquired) E03.9 Active 48614578 Problem GERD without esophagitis K21.9 Active 608716683 Problem Other headache syndrome G44.89 Active 393843957 ALLERGIES No Known Allergies SOCIAL HISTORY Never Assessed PLAN OF CARE Activity Details Follow Up prn Reason: VITAL SIGNS Height 65 in 2016-11-27 Weight 155 lbs 2016-11-27 Temperature 98.1 degrees Fahrenheit 2016-11-27 Heart Rate 64 bpm 2016-11-27 Respiratory Rate 18 2016-11-27 BMI 25.79 kg/m2 2016-11-27 Blood pressure systolic 98 mmHg 2016-11-27 Blood pressure diastolic 78 mmHg 2016-11-27 MEDICATIONS Medication Instructions Dosage Frequency Start Date End Date Duration Status Levothyroxine Sodium 50 MCG Orally Once a day 1 tablet on an empty stomach in the morning 24h 30 days Active RESULTS Name Result Date Reference Range TSH 2016-11-27 TSH 4.430 0.450-4.500 LIPID PANEL 2016-11-27 Cholesterol, Total 193 100-199 Triglycerides 60 0-149 HDL Cholesterol 70 >39 VLDL Cholesterol William 12 5-40 LDL Cholesterol Calc 111 0-99 CMP 2016-11-27 Glucose, Serum 91 65-99 BUN 13 6-24 Creatinine, Serum 0.87 0.57-1.00 eGFR If NonAfricn Am 80 >59 eGFR If Africn Am 92 >59 BUN/Creatinine Ratio 15 9-23 Sodium, Serum 138 134-144 Potassium, Serum 4.9 3.5-5.2 Chloride, Serum 101 96-106 Carbon Dioxide, Total 22 18-29 Calcium, Serum 9.4 8.7-10.2 Protein, Total, Serum 7.6 6.0-8.5 Albumin, Serum 4.2 3.5-5.5 Globulin, Total 3.4 1.5-4.5 A/G Ratio 1.2 1.2-2.2 Bilirubin, Total 0.4 0.0-1.2 Alkaline Phosphatase, S 70 39-117 AST (SGOT) 22 0-40 ALT (SGPT) 15 0-32 PROCEDURES Procedure Date Ordered Result Body Site ASSAY THYROID STIM HORMONE November 27, 2016 COMPREHEN METABOLIC PANEL November 27, 2016 VENIPUNCT, ROUTINE* November 27, 2016 TORADOL (IM) 60 MG/2ML (UP TO 15 MG) November 27, 2016 LIPID PANEL November 27, 2016 PHENERGAN 50MG/ML November 27, 2016 THER/PROPH/DIAG INJ, SC/IM November 27, 2016 IMMUNIZATIONS Vaccine Route Administration Date Status PHENERGAN 50MG/ML IM Intramuscular November 27, 2016 Administered TORADOL (IM) 60 MG/2ML (UP TO 15 MG) IM Intramuscular November 27, 2016 Administered MEDICAL (GENERAL) HISTORY Type Description Date Medical History Cerebrovascular accident (CVA), unspecified mechanism Surgical History left breast lumpectomy 1999 Surgical History Had a shunt from her head to her abd when she had the stroke. It has been removed 2007 Hospitalization History lumpectomy 1999 Hospitalization History CVA 2007
--- OUTSIDE RECORDS SUMMARY | 2018-12-23 11:17 | XMS REPORT ---
Author Author NOVA HERNANDEZ [facility] Address [address] [place] [address] Care Team Providers Care Drying Room Operator Name Role Phone NOVA HERNANDEZ Unavailable PROBLEMS Type Condition ICD9-CM Code WDE29-SR Code Onset Dates Condition Status SNOMED Code Problem Hypothyroidism (acquired) E03.9 Active 62625768 Problem GERD without esophagitis K21.9 Active 845034731 Problem Other headache syndrome G44.89 Active 783170586 ALLERGIES No Information SOCIAL HISTORY Never Assessed PLAN OF CARE VITAL SIGNS MEDICATIONS No Known Medications RESULTS No Results PROCEDURES No Known [...]
--- OUTSIDE RECORDS SUMMARY | 2018-12-23 11:18 | XMS REPORT ---
Author Author PRABHJOTABHISHEKDARIO Organization [facility] Address [address] [place] [address] Care Team Providers Care Overseer Kosher [employer] Name Role Phone RICKDARIO Rios Unavailable PROBLEMS Type Condition ICD9-CM Code VGX18-UC Code Onset Dates Condition Status SNOMED Code Problem Hypothyroidism (acquired) E03.9 Active 30387626 Problem GERD without esophagitis K21.9 Active 615126840 Problem Other headache syndrome G44.89 Active 996319376 ALLERGIES No Information ENCOUNTERS Encounter Location Date Diagnosis [facility] [address] [address] Nov, [facility] [address] [address] Oct, [facility] [address] [address] Aug, Acute cystitis with hematuria N30.01 [facility] [address] [address] Jun, [facility] [address] 87984[address] 4642 Jun, [facility] [address] [address]67 Apr, [facility] [address] 06[address] Apr, [facility] [address] [address] 7608 Mar, Weakness R53.1 ; Other fatigue R53.83 and Hypothyroidism ( acquired) E03.9 [facility] [address] [address] Feb, [facility] [id number] [place] [address] 09602- 0373 Feb, GERD without esophagitis K21.9 and Hypothyroidism (acquired ) E03.9 [facility] [id number] [place] [address] 93114- 0907 Jan, [facility] [id number] [place] [address] 39478- 1974 Jan, Acute upper respiratory infection, unspecified J06.9 [facility] [id number] [place] [address] 50784- 0599 Jan, [facility] [id number] [place] [address] 81766- 9374 Jan, Bronchitis J40 and Coughing R05 [facility] [id number] [place] [address] 98963- 3016 Jan, [facility] [id number] [place] [address] 75386- 5954 Jan, [facility] [id number] [place] [address] 25502- 2500 Jan, Wheezing R06.2 ; Bronchitis J40 and Cough R05 [facility] [id number] [place] [address] 30026- 4842 December, Acute nasopharyngitis J00 and Dysuria R30.0 [facility] [id number] [place] [address] 75865- 8734 Nov, [facility] [id number] [place] [address] 99480- 8680 Nov, [facility] [id number] [place] [address] 18881- 2231 Nov, [facility] [id number] [place] [address] 92559- 8224 Nov, Other headache syndrome G44.89 ; Edema, unspecified type R60.9 ; Acquired hypothyroidism E03.9 and Screening, lipid Z13.220 [facility] [id number] [place] [address] 16513- 5987 Oct, Hypothyroidism (acquired) E03.9 [facility] [id number] [place] [address] 67041- 1611 Oct, [facility] [address] 81164- 3921 Sep, [facility] [address] 62345- 4649 Sep, [facility] [address] 21268- 6965 Sep, [facility] [id number] [place] [address] 80183- 6507 Sep, Weight loss R63.4 ; Change in bowel habits R19.4 and Hypothyroidism (acquired) E03.9 [facility] [id number] [place] [address] 07772- 3949 Aug, [facility] [id number] [place] [address] 49735- 0541 Jul, Hypothyroidism (acquired) E03.9 [facility] [id number] [place] [address] 90323- 5283 Jul, [facility] [id number] [place] [address] 84953- 7502 May, Hypothyroidism (acquired) E03.9 [facility] [id number] [place] [address] 24519- 9323 Apr, Hypothyroidism (acquired) E03.9 [facility] [id number] [place] [address] 62968- 0483 Mar, Hypothyroidism (acquired) E03.9 and Arthralgia, unspecified joint M25.50 [facility] [address] [place] [address]- 76[address] Feb, Hypothyroidism (acquired) E03.9 [facility] [address] [facility] [id number] [place] [address] Feb, Dysuria R30.0 ; Encounter to establish care Z76.89 ; Arthralgia, unspecified joint M25.50 ; Fatigue, unspecified type R53.83 ; Low back pain M54.5 ; Other chronic pain G89.29 ; Family history of diabetes mellitus Z83.3 and History of stroke Z86.73 IMMUNIZATIONS No Known Immunizations SOCIAL HISTORY Never Assessed REASON FOR VISIT new med PLAN OF CARE VITAL SIGNS MEDICATIONS Medication Instructions Dosage Frequency Start Date End Date Duration Status Doxycycline Hyclate 100 mg Orally every 12 hrs 1 capsule 12h Jan, Feb, 07 days Active RESULTS No Results PROCEDURES No [...]
--- OUTSIDE RECORDS SUMMARY | 2018-12-23 11:18 | XMS REPORT ---
Author Author NOVA HERNANDEZ [facility] Address [address] [place] [address] Care Team Providers Care Local Government Legislator Name Role Phone NOVA HERNANDEZ Unavailable PROBLEMS Type Condition ICD9-CM Code AML56-VV Code Onset Dates Condition Status SNOMED Code Problem Hypothyroidism (acquired) E03.9 Active 29173601 Problem GERD without esophagitis K21.9 Active 596276665 Problem Other headache syndrome G44.89 Active 655179171 ALLERGIES No Known Allergies SOCIAL HISTORY Never Assessed PLAN OF CARE Activity Details Follow Up 4 Weeks Reason:WWE VITAL SIGNS Height 65 in 2016-10-02 Weight 154.3 lbs 2016-10-02 Heart Rate 76 bpm 2016-10-02 Respiratory Rate 16 2016-10-02 BMI 25.67 kg/m2 2016-10-02 Blood pressure systolic 100 mmHg 2016-10-02 Blood pressure diastolic 60 mmHg 2016-10-02 MEDICATIONS Medication Instructions Dosage Frequency Start Date End Date Duration Status Levothyroxine Sodium 50 MCG TAKE ONE TABLET BY MOUTH ONCE DAILY 30 Active RESULTS Name Result Date Reference Range CRP 2016-10-02 C-Reactive Protein, Quant 1.3 0.0-4.9 CMP 2016-10-02 Glucose, Serum 75 65-99 BUN 17 6-24 Creatinine, Serum 0.97 0.57-1.00 eGFR If NonAfricn Am 70 >59 eGFR If Africn Am 80 >59 BUN/Creatinine Ratio 18 9-23 Sodium, Serum 143 134-144 Potassium, Serum 4.6 3.5-5.2 Chloride, Serum 101 96-106 Carbon Dioxide, Total 27 18-29 Calcium, Serum 9.3 8.7-10.2 Protein, Total, Serum 7.0 6.0-8.5 Albumin, Serum 4.1 3.5-5.5 Globulin, Total 2.9 1.5-4.5 A/G Ratio 1.4 1.1-2.5 Bilirubin, Total 0.2 0.0-1.2 Alkaline Phosphatase, S 70 39-117 AST (SGOT) 21 0-40 ALT (SGPT) 15 0-32 CBC 2016-10-02 WBC 4.9 3.4-10.8 RBC 4.38 3.77-5.28 Hemoglobin 12.8 11.1-15.9 Hematocrit 39.7 34.0-46.6 MCV 91 79-97 MCH 29.2 26.6-33.0 MCHC 32.2 31.5-35.7 RDW 13.5 12.3-15.4 Platelets 282 150-379 Neutrophils 54 Lymphs 34 Monocytes 9 Eos 2 Basos 1 Neutrophils (Absolute) 2.7 1.4-7.0 Lymphs (Absolute) 1.6 0.7-3.1 Monocytes(Absolute) 0.5 0.1-0.9 Eos (Absolute) 0.1 0.0-0.4 Baso (Absolute) 0.0 0.0-0.2 Immature Granulocytes 0 Immature Grans (Abs) 0.0 0.0-0.1 PROCEDURES Procedure Date Ordered Result Body Site COMPLETE CBC W/AUTO DIFF WBC Oct 02, 2016 COMPREHEN METABOLIC PANEL Oct 02, 2016 VENIPUNCT, ROUTINE* Oct 02, 2016 C-REACTIVE PROTEIN Oct 02, 2016 IMMUNIZATIONS No Known Immunizations MEDICAL (GENERAL) HISTORY Type Description Date Medical History Cerebrovascular accident (CVA), unspecified mechanism Surgical History left breast lumpectomy 1999 Surgical History Had a shunt from her head to her abd when she had the stroke. It has been removed 2007 Hospitalization History lumpectomy 1999 Hospitalization History CVA 2007
--- OUTSIDE RECORDS SUMMARY | 2018-12-23 11:18 | XMS REPORT ---
Author Author NOVA HERNANDEZ Organization [facility] Address [address] [place] [address] Care Team Providers Care Coal Digger Name Role Phone NOVA HERNANDEZ Unavailable PROBLEMS Type Condition ICD9-CM Code NXU83-RO Code Onset Dates Condition Status SNOMED Code Problem Hypothyroidism (acquired) E03.9 Active 60813412 Problem GERD without esophagitis K21.9 Active 149644413 Problem Other headache syndrome G44.89 Active 481735961 ALLERGIES No Information ENCOUNTERS Encounter Location Date Diagnosis [facility] [address] [address] Oct, [facility] [address] [address] Aug, Acute cystitis with hematuria N30.01 [facility] [address] 6[address]- [address]10 Jun, [facility] [address] 04824- 5947 Jun, [facility] [id number] [place] [address] 43476- 2972 Apr, [facility] [address] 432[address]- 60[address] Apr, [facility] [address] 67[address]- 56[address] Mar, Weakness R53.1 ; Other fatigue R53.83 and Hypothyroidism ( acquired) E03.9 [facility] [address] 98[address]- 1475 Feb, [facility] [address] 28[address]- 8799 Feb, GERD without esophagitis K21.9 and Hypothyroidism (acquired ) E03.9 [place] [address] [address]- [address]12 Jan, [place] [id number] [place] [address] 74907- 9652 Jan, Acute upper respiratory infection, unspecified J06.9 [place] [address] 92277- 0572 Jan, [place] [address] 41582- 2347 Jan, Bronchitis J40 and Coughing R05 [place] [id number] [place] [address] 77081- 4386 Jan, [place] [address] 29[address]- 3293 Jan, [place] [id number] [place] [address] 49527- 2722 Jan, Wheezing R06.2 ; Bronchitis J40 and Cough R05 [place] [id number] [place] [address] 41725- 0072 December, Acute nasopharyngitis J00 and Dysuria R30.[address] [address]- 7424 Nov, [place] [id number] [place] [address] 68643- 0234 Nov, [place] [address] 19480- 9[address] Nov, [place] [address] [address]- 6039 Nov, Other headache syndrome G44.89 ; Edema, unspecified type R60.9 ; Acquired hypothyroidism E03.9 and Screening, lipid Z13.220 [place] [address] [address] Oct, Hypothyroidism (acquired) E03.9 [facility] [id number] [place] [address] 72492- 2212 Oct, [facility] [id number] [place] [address] 03688- 2594 Sep, [facility] [id number] [place] [address] 81458- 7382 Sep, [facility] [id number] [place] [address] 58137- 2848 Sep, [facility] [id number] [place] [address] 14090- 8191 Sep, Weight loss R63.4 ; Change in bowel habits R19.4 and Hypothyroidism (acquired) E03.9 [facility] [id number] [place] [address] 93109- 7135 Aug, [facility] [id number] [place] [address] 07761- 2412 Jul, Hypothyroidism (acquired) E03.9 [facility] [id number] [place] [address] 51937- 5443 Jul, [facility] [address] [place] [address] 45488- 6706 May, Hypothyroidism (acquired) E03.9 [facility] [id number] [place] [address] 52250- 9842 Apr, Hypothyroidism (acquired) E03.9 [facility] [id number] [place] [address] 083439- 2346 Mar, Hypothyroidism (acquired) E03.9 and Arthralgia, unspecified joint M25.50 [facility] [address] [address] Feb, Hypothyroidism (acquired) E03.9 [place] [address] [facility] [id number] [place] [address]- [address] Feb, Dysuria R30.0 ; Encounter to establish care Z76.89 ; Arthralgia, unspecified joint M25.50 ; Fatigue, unspecified type R53.83 ; Low back pain M54.5 ; Other chronic pain G89.29 ; Family history of diabetes mellitus Z83.3 and History of stroke Z86.73 IMMUNIZATIONS No Known Immunizations SOCIAL HISTORY Never Assessed REASON FOR VISIT Rx per 04/16 lab PLAN OF CARE VITAL SIGNS MEDICATIONS Medication [...]
--- OUTSIDE RECORDS SUMMARY | 2018-12-23 11:18 | XMS REPORT ---
Author Author NOVA HERNANDEZ [facility] Address [address] [place] [address] Care Team Providers Care Sterile Technician Name Role Phone NOVA HERNANDEZ Unavailable PROBLEMS Type Condition ICD9-CM Code SJI93-BP Code Onset Dates Condition Status SNOMED Code Problem Hypothyroidism (acquired) E03.9 Active 955263557 Assessment Hypothyroidism (acquired) E03.9 Jul, Active 26068068 ALLERGIES Unknown Allergies SOCIAL HISTORY No smoking Hx information available PLAN OF CARE Activity Details Pending Test TSH ,Reason: VITAL SIGNS MEDICATIONS Unknown Medications RESULTS Name Result Date Reference Range TSH 2016-07-31 TSH 3.990 0.450-4.500 PROCEDURES Procedure Date Ordered Related Diagnosis Body Site ASSAY THYROID STIM HORMONE Jul 31, 2016 VENIPUNCT, ROUTINE* Jul 31, 2016 IMMUNIZATIONS No Known Immunizations
--- OUTSIDE RECORDS SUMMARY | 2018-12-23 11:18 | XMS REPORT ---
Author Author RICKDARIO Rios [facility] Address [address] [place] [address] Care Team Providers Care District Leader Name Role Phone RICKDARIO Rios Unavailable PROBLEMS Type Condition ICD9-CM Code SNZ28-RQ Code Onset Dates Condition Status SNOMED Code Problem Hypothyroidism (acquired) E03.9 Active 87394689 Problem GERD without esophagitis K21.9 Active 987283774 Problem Other headache syndrome G44.89 Active 697311926 ALLERGIES No Known Allergies ENCOUNTERS Encounter Location Date Diagnosis [facility] [address] [address] Nov, [facility] [address] 16[address]- [address]221 Oct, [facility] [address] [address] Aug, Acute cystitis with hematuria N30.01 [facility] [address] [address]- 8521 Jun, [facility] [id number] [place] [address] 43139- 7630 Jun, [facility] [address] 19862- 4483 Apr, [facility] [address] 70719- 3194 Apr, [facility] [address] 39[address]- 3533 Mar, Weakness R53.1 ; Other fatigue R53.83 and Hypothyroidism ( acquired) E03.9 [facility] [address] [address]- 2722 Feb, [facility] [id number] [place] [address] 02146- 9501 Feb, GERD without esophagitis K21.9 and Hypothyroidism (acquired ) E03.9 [facility] [id number] [place] [address] 10549- 2243 Jan, [facility] [id number] [place] [address] 91663- 8542 Jan, Acute upper respiratory infection, unspecified J06.9 [facility] [id number] [place] [address] 90191- 1136 Jan, [facility] [id number] [place] [address] 06924- 3266 Jan, Bronchitis J40 and Coughing R05 [facility] [id number] [place] [address] 51357- 4805 Jan, [facility] [id number] [place] [address] 46725- 5970 Jan, [facility] [id number] [place] [address] 30827- 8244 Jan, Wheezing R06.2 ; Bronchitis J40 and Cough R05 [facility] [id number] [place] [address] 22839- 1045 December, Acute nasopharyngitis J00 and Dysuria R30.0 [facility] [id number] [place] [address] 07740- 1386 Nov, [facility] [id number] [place] [address] 59441- 8152 Nov, [facility] [id number] [place] [address] 08517- 3286 Nov, [facility] [id number] [place] [address] 14407- 9104 Nov, Other headache syndrome G44.89 ; Edema, unspecified type R60.9 ; Acquired hypothyroidism E03.9 and Screening, lipid Z13.220 [facility] [id number] [place] [address] 77150- 8686 Oct, Hypothyroidism (acquired) E03.9 [facility] [id number] [place] [address] 40828- 4115 Oct, [facility] [address] 097[address]- 6985 Sep, [facility] [id number] [place] [address] 60733- 5541 Sep, [facility] [address] 65514- 7179 Sep, [facility] [id number] [place] [address] 41695- 9348 Sep, Weight loss R63.4 ; Change in bowel habits R19.4 and Hypothyroidism (acquired) E03.9 [facility] [id number] [place] [address] 14895- 5621 Aug, [facility] [id number] [place] [address] 67920- 3091 Jul, Hypothyroidism (acquired) E03.9 [facility] [id number] [place] [address] 44720- 1779 Jul, [facility] [id number] [place] [address] 75424- 8076 May, Hypothyroidism (acquired) E03.9 [facility] [id number] [place] [address] 94035- 5272 Apr, Hypothyroidism (acquired) E03.9 [facility] [id number] [place] [address] 53579- 5114 Mar, Hypothyroidism (acquired) E03.9 and Arthralgia, unspecified joint M25.50 [facility] [address] [place] [address]- 2955 Feb, Hypothyroidism (acquired) E03.9 [facility] [address] [facility] [id number] [place] [address]- 6400 Feb, Dysuria R30.0 ; Encounter to establish care Z76.89 ; Arthralgia, unspecified joint M25.50 ; Fatigue, unspecified type R53.83 ; Low back pain M54.5 ; Other chronic pain G89.29 ; Family history of diabetes mellitus Z83.3 and History of stroke Z86.73 IMMUNIZATIONS No Known Immunizations SOCIAL HISTORY Never Assessed REASON FOR VISIT cough, persistant, over 1 month--DBennettRN PLAN OF CARE Activity Details Follow Up 4 Weeks Reason:w/PCP VITAL SIGNS Height 65 in 2017-02-24 Weight 158 lbs 2017-02-24 Temperature 97.8 degrees Fahrenheit 2017-02-24 Heart Rate 80 bpm 2017-02-24 Respiratory Rate 20 2017-02-24 BMI 26.29 kg/m2 2017-02-24 Blood pressure systolic 104 mmHg 2017-02-24 Blood pressure diastolic 70 mmHg 2017-02-24 MEDICATIONS Medication Instructions Dosage Frequency Start Date End Date Duration Status Loratadine 10 mg Orally Once a day 1 tablet 24h December, Apr, 30 day(s) Active Levothyroxine Sodium 50 mcg Orally Once a day 1 tablet on an empty stomach in the morning 24h 30 days Active ProAir HFA 108 (90 Base) MCG/ACT Inhalation every 4 hrs 2 puffs as needed 4h Jan, Active Esomeprazole Magnesium 20 mg Orally Once [...]
[2018-12-23 11:29] VITALS: BP 105/80
== END 2018-12-23 11:29 | disposition home or self-care (01) ==
LOC: ER 09:34
DX: S06.0X1A Concussion with loss of consciousness of 30 minutes or less, initial encounter (principal); S60.222A Contusion of left hand, initial encounter; S00.03XA Contusion of scalp, initial encounter; R51 Headache; E03.9 Hypothyroidism, unspecified; R40.2142 Coma scale, eyes open, spontaneous, at arrival to emergency department; R40.2252 Coma scale, best verbal response, oriented, at arrival to emergency department; R40.2362 Coma scale, best motor response, obeys commands, at arrival to emergency department; Z86.73 Personal history of transient ischemic attack (TIA), and cerebral infarction without residual deficits; W10.8XXA Fall (on) (from) other stairs and steps, initial encounter
CPT/HCPCS: 70450; 72125; 73130

== ENCOUNTER 2019-08-22 14:16 | Emergency (ER) | payer SELFPAY ==
[~2019-08-22] VITALS: Ht 165.1 cm; Wt 77.1 kg
[~2019-08-22 14:16] MED LIST: LEVOTHYROXINE
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
[2019-08-22 15:34] VITALS: BP 134/69
== END 2019-08-22 15:34 | disposition home or self-care (01) ==
LOC: ER 14:16
DX: S06.0X0A Concussion without loss of consciousness, initial encounter (principal); S16.1XXA Strain of muscle, fascia and tendon at neck level, initial encounter; Z86.73 Personal history of transient ischemic attack (TIA), and cerebral infarction without residual deficits; V49.50XA Passenger injured in collision with unspecified motor vehicles in traffic accident, initial encounter
CPT/HCPCS: 70450; 72125

== ENCOUNTER → 2022-05-15 | Outpatient (CLI) | payer BC | LOC: PREOP 05:41 | PROVIDERS: ATTEND Surgery | DX: Z01.818 Encounter for other preprocedural examination (principal); Z12.11 Encounter for screening for malignant neoplasm of colon ==

== ENCOUNTER 2023-07-23 05:53 | Outpatient (CLI) | payer BC ==
[~2023-07-23] VITALS: Ht 157.5 cm; Wt 70.8 kg
[2023-07-28] MEDS ORDERED: LEVO75CA5 PO (11:28)
== END 2023-07-28 11:54 | disposition home or self-care (01) ==
LOC: PREOP 05:53
PROVIDERS: ATTEND Surgery
DX: Z01.818 Encounter for other preprocedural examination (principal)